=== PATIENT | male | born 1950 | race African-American/Black ===

== ENCOUNTER → 2018-07-20 08:12 | Outpatient (CLI) | payer OTHER, SELFPAY ==
[2018-07-20 09:20] LABS: ALB/GLOB Ratio 0.7 RATIO (0.9-2.4); AST(SGOT) 22 U/L (15-37); Alanine Aminotransfer ALT/SGPT 29 U/L (16-61); Albumin, Serum 3.4 g/dL (3.2-5.0); Alkaline Phosphatase 67 U/L (45-117); Anion Gap 7 (5-15); BUN 12 mg/dL (7-18); BUN/Creat Ratio 10.7 RATIO (10-20); Chloride 103 mmol/L (98-107); Cholesterol 171 mg/dL (200); Creatinine, Serum 1.12 mg/dL (0.70-1.30); EST Glomerular Filtration Rate 70 mL/min (>60); Est Glom Filt Rate - Afr Amer 84 mL/min (>60); Globulin 4.8 g/dL (2.2-4.2); Glucose 91 mg/dL (74-106); High Density Lipoprotein 42 mg/dL; Potassium 4.7 mmol/L (3.5-5.1); Protein, Total 8.2 g/dL (6.4-8.2); Sodium Level 141 mmol/L (136-145); Triglycerides 78 mg/dL; Very Low Density Lipoprotein 16 mg/dL (5-40)
== END ==
PROVIDERS: Family Provider Family Medicine; PCP Family Medicine; Referring Provider Family Medicine; Visit Provider Family Medicine
DX: Z00.00 Encounter for general adult medical examination without abnormal findings (principal); N52.9 Male erectile dysfunction, unspecified
CPT/HCPCS: 36415; 80053; 80061

== ENCOUNTER → 2019-01-26 | Outpatient (CLI) | payer OTHER, SELFPAY ==
[2019-01-26 10:05] VITALS: BMI 26.6
[2019-01-26 13:04] LABS: Cholesterol 183 mg/dL (200); High Density Lipoprotein 46 mg/dL; Triglycerides 106 mg/dL; Very Low Density Lipoprotein 21 mg/dL (5-40)
== END | disposition home or self-care (01) ==
LOC: BIMLAB 10:37
PROVIDERS: Family Provider Family Medicine; PCP Family Medicine; Visit Provider Family Medicine
DX: E78.5 Hyperlipidemia, unspecified (principal)
CPT/HCPCS: 36415; 80061

== ENCOUNTER → 2019-06-15 15:07 | Outpatient (CLI) | payer OTHER, SELFPAY ==
[2019-06-15 14:03] VITALS: BMI 26.2
[2019-06-15 17:38] LABS: ALB/GLOB Ratio 0.8 RATIO (0.9-2.4); AST(SGOT) 21 U/L (15-37); Alanine Aminotransfer ALT/SGPT 33 U/L (16-61); Albumin, Serum 3.3 g/dL (3.2-5.0); Alkaline Phosphatase 63 U/L (45-117); Anion Gap 7 (5-15); BUN 11 mg/dL (7-18); BUN/Creat Ratio 9.9 RATIO (10-20); Calcium,Total 8.8 mg/dL (8.5-10.1); Chloride 103 mmol/L (98-107); Cholesterol 144 mg/dL (200); Creatinine, Serum 1.11 mg/dL (0.70-1.30); EST Glomerular Filtration Rate 70 mL/min (>60); Est Glom Filt Rate - Afr Amer 85 mL/min (>60); Globulin 4.4 g/dL (2.2-4.2); Glucose 76 mg/dL (74-106); High Density Lipoprotein 46 mg/dL; PSA,Total - Annual Screen 4.61 ng/mL (0.00-4.00); Potassium 4.3 mmol/L (3.5-5.1); Protein, Total 7.7 g/dL (6.4-8.2); Sodium Level 141 mmol/L (136-145); Triglycerides 75 mg/dL; Very Low Density Lipoprotein 15 mg/dL (5-40)
== END ==
PROVIDERS: Family Provider Family Medicine; PCP Family Medicine; Referring Provider Family Medicine; Visit Provider Family Medicine
DX: E78.5 Hyperlipidemia, unspecified (principal); N52.9 Male erectile dysfunction, unspecified; Z12.5 Encounter for screening for malignant neoplasm of prostate
CPT/HCPCS: 36415; 80053; 80061; 84153; G0103

== ENCOUNTER → 2020-04-25 15:34 | Outpatient (CLI) | payer OTHER, SELFPAY ==
[2020-02-02 08:28] VITALS: BMI 26.4
[2020-04-29 08:50] LABS: Trileptal-Oxcarbazepine 23 ug/mL (10-35)
== END ==
PROVIDERS: PCP Family Medicine; Referring Provider Family Medicine; Visit Provider Family Medicine
DX: R56.9 Unspecified convulsions (principal)
CPT/HCPCS: 36415; 82542

== ENCOUNTER → 2020-06-05 07:42 | Outpatient (CLI) | payer OTHER, SELFPAY ==
[2020-05-18 08:11] VITALS: BMI 26.9
[2020-06-05 08:46] LABS: Hematocrit 39.6 % (40-54); Hemoglobin 12.4 g/dL (13.0-16.5); Mean Corp Hgb Conc 31.3 g/dL (32-36); Mean Corpuscular Hgb 27.4 pg (27.0-32.0); Mean Corpuscular Volume 87.4 fL (80-94); Mean Platelet Vol. 10.8 fl (6.2-12.0); Platelet Count 213 K/mm3 (150-450); RBC Distribution Width CV 13.7 % (11.6-14.6); RBC Distribution Width SD 43.8 fl (35.1-43.9); Red Blood Count 4.53 M/mm3 (4.6-6.2); White Blood Count 4.1 K/mm3 (4.4-11.0)
[2020-06-05 08:48] LABS: Vitamin B12 471 pg/mL (211-911)
[2020-06-05 09:11] LABS: ALB/GLOB Ratio 0.7 RATIO (0.9-2.4); AST(SGOT) 24 U/L (15-37); Alanine Aminotransfer ALT/SGPT 37 U/L (16-61); Albumin, Serum 3.4 g/dL (3.2-5.0); Alkaline Phosphatase 69 U/L (45-117); Anion Gap 4 (5-15); BUN 12 mg/dL (7-18); BUN/Creat Ratio 10.3 RATIO (10-20); Calcium,Total 8.9 mg/dL (8.5-10.1); Chloride 103 mmol/L (98-107); Creatinine, Serum 1.17 mg/dL (0.70-1.30); EST Glomerular Filtration Rate 66 mL/min (>60); Est Glom Filt Rate - Afr Amer 80 mL/min (>60); Globulin 4.9 g/dL (2.2-4.2); Glucose 90 mg/dL (74-106); Potassium 4.4 mmol/L (3.5-5.1); Protein, Total 8.3 g/dL (6.4-8.2); Sodium Level 138 mmol/L (136-145); Thyroid Stim Hormone (TSH) 1.28 uIU/mL (0.358-3.74)
== END ==
PROVIDERS: Nurse Practitioner Family; PCP Family Medicine; Referring Provider Psychiatry & Neurology Neurology; Visit Provider Psychiatry & Neurology Neurology
DX: G31.84 Mild cognitive impairment of uncertain or unknown etiology (principal); G40.909 Epilepsy, unspecified, not intractable, without status epilepticus
CPT/HCPCS: 36415; 80053; 82607; 82746; 84443; 85027

== ENCOUNTER → 2020-06-28 09:12 | Outpatient (CLI) | payer OTHER, SELFPAY ==
[2020-06-28 08:15] VITALS: BMI 26.6
== END ==
PROVIDERS: PCP Family Medicine; Referring Provider Internal Medicine; Visit Provider Internal Medicine
DX: Z00.00 Encounter for general adult medical examination without abnormal findings (principal); D64.9 Anemia, unspecified; G40.909 Epilepsy, unspecified, not intractable, without status epilepticus
CPT/HCPCS: 36415

== ENCOUNTER → 2020-07-17 09:22 | Outpatient (CLI) | payer OTHER, SELFPAY ==
[2020-05-18 08:11] VITALS: BMI 26.9
[2020-06-28 08:15] VITALS: BMI 26.6
--- NOTE | 2020-07-17 09:23 | MRI_ITS ---
STUDY: MRA OF THE HEAD WITHOUT CONTRAST REASON FOR EXAM: Male, 69 years old. family hx cerebral aneurysm, hx of seizure 01/03/20 TECHNIQUE: 3-D athn-[id number] (TOF) imaging was performed with MIPs. The study was performed unenhanced. COMPARISON: None. FINDINGS: Normal bilateral petrous carotid arteries. Normal right cavernous carotid artery with a normal supraclinoid bifurcation. Normal left cavernous carotid artery with a normal supraclinoid bifurcation. Normal right A1 segments of the anterior cerebral artery. Normal left A1 segments of the anterior cerebral artery. Normal intact anterior communicating artery (ACOM). Normal bilateral A2 segments of the anterior cerebral arteries. Normal right M1 and M2 segments of the middle cerebral arteries, with a normal M1 bifurcation. Normal left M1 and M2 segments of the middle cerebral arteries, with a normal M1 bifurcation. Normal right posterior communicating artery (PCOM). Normal left posterior communicating artery (PCOM). Normal bilateral vertebral arteries. Normal basilar artery with a normal basilar bifurcation. The visualized bilateral superior cerebellar (SCA) arteries are normal. Normal bilateral P1, P2 and visualized P3 segments of the posterior cerebral arteries. There is no demonstrated aneurysm of the [place]. There is no major vessel occlusion or hemodynamically significant stenosis. MRI/MRA Head ONLY without Contrast IMPRESSION: Normal MRA of the head Electronically Signed: Jose Luis Flores MD at 18:12 EDT Tel , Service support ,
== END ==
PROVIDERS: PCP Family Medicine; Referring Provider Psychiatry & Neurology Neurology; Visit Provider Psychiatry & Neurology Neurology
DX: Z13.6 Encounter for screening for cardiovascular disorders (principal); Z82.49 Family history of ischemic heart disease and other diseases of the circulatory system
CPT/HCPCS: 70544

== ENCOUNTER → 2020-08-21 06:20 | Outpatient (CLI) | payer OTHER, SELFPAY ==
[2020-05-18 08:11] VITALS: BMI 26.9
[2020-06-28 08:15] VITALS: BMI 26.6
--- NOTE | 2020-08-21 07:41 | TELEMED_ITS ---
[facility] Telemed has confirmed receipt of a request for visit. This document confirms receipt of the order initiating the consult. To find the results of the consultation, please view the patient's reports for the scanned Telemed Consult.
== END ==
PROVIDERS: PCP Family Medicine; Referring Provider Psychiatry & Neurology Neurology; Visit Provider Psychiatry & Neurology Neurology
DX: G40.909 Epilepsy, unspecified, not intractable, without status epilepticus (principal)
CPT/HCPCS: 95819

== ENCOUNTER → 2020-08-21 18:06 | Outpatient (CLI) | payer OTHER, SELFPAY ==
[2020-08-21 08:23] VITALS: BMI 26.6
== END ==
PROVIDERS: PCP Family Medicine; Referring Provider Internal Medicine; Visit Provider Internal Medicine
DX: U07.1 COVID-19 (principal)
CPT/HCPCS: 87635; C9803; U0003

== ENCOUNTER → 2020-11-01 08:27 | Outpatient (CLI) | payer OTHER, SELFPAY ==
[2020-09-07 08:29] VITALS: BMI 26.5
[2020-11-01 10:06] LABS: Hematocrit 39.5 % (40-54); Hemoglobin 12.2 g/dL (13.0-16.5); Mean Corp Hgb Conc 30.9 g/dL (32-36); Mean Corpuscular Hgb 26.9 pg (27.0-32.0); Mean Corpuscular Volume 87.2 fL (80-94); Mean Platelet Vol. 11.1 fl (6.2-12.0); Platelet Count 218 K/mm3 (150-450); RBC Distribution Width CV 14.2 % (11.6-14.6); RBC Distribution Width SD 45.6 fl (35.1-43.9); Red Blood Count 4.53 M/mm3 (4.6-6.2); White Blood Count 4.8 K/mm3 (4.4-11.0)
[2020-11-01 10:49] LABS: ALB/GLOB Ratio 0.8 RATIO (0.9-2.4); AST(SGOT) 19 U/L (15-37); Alanine Aminotransfer ALT/SGPT 36 U/L (16-61); Albumin, Serum 3.7 g/dL (3.2-5.0); Alkaline Phosphatase 70 U/L (45-117); Anion Gap 3 (5-15); BUN 12 mg/dL (7-18); BUN/Creat Ratio 10.4 RATIO (10-20); Calcium,Total 9.5 mg/dL (8.5-10.1); Chloride 107 mmol/L (98-107); Creatinine, Serum 1.15 mg/dL (0.70-1.30); EST Glomerular Filtration Rate 67 mL/min (>60); Est Glom Filt Rate - Afr Amer 81 mL/min (>60); Globulin 4.9 g/dL (2.2-4.2); Glucose 80 mg/dL (74-106); Potassium 4.2 mmol/L (3.5-5.1); Protein, Total 8.6 g/dL (6.4-8.2); Sodium Level 139 mmol/L (136-145)
[2020-11-05 16:50] LABS: Trileptal-Oxcarbazepine 18 ug/mL (10-35)
== END ==
PROVIDERS: PCP Family Medicine; Referring Provider Psychiatry & Neurology Neurology; Visit Provider Psychiatry & Neurology Neurology
DX: G40.909 Epilepsy, unspecified, not intractable, without status epilepticus (principal)
CPT/HCPCS: 36415; 80053; 82542; 85027

== ENCOUNTER 2020-11-30 14:18 | Outpatient (RCR) | payer OTHER, SELFPAY ==
[2020-09-07 08:29] VITALS: BMI 26.5
[2020-11-30] MEDS: COVID-19 VACC, MRNA(PFIZER)/PF 30 MCG/0.3 ML SYRINGE IM (18:07)
[2020-12-21] MEDS: COVID-19 VACC, MRNA(PFIZER)/PF 30 MCG/0.3 ML SYRINGE IM (18:05)
== END 2021-02-27 23:59 ==
LOC: IMMUN 14:18
PROVIDERS: PCP Family Medicine; Referring Provider Family Medicine; Visit Provider Family Medicine
DX: Z23 Encounter for immunization (principal)
CPT/HCPCS: 0001A; 0002A; 91300

== ENCOUNTER → 2021-06-09 08:31 | Outpatient (CLI) | payer OTHER, SELFPAY ==
[2021-06-12 18:25] LABS: Lamotrigine (Lamictal) Level 2.7 ug/mL (2.0-20.0)
== END ==
PROVIDERS: PCP Family Medicine; Referring Provider Psychiatry & Neurology Neurology; Visit Provider Psychiatry & Neurology Neurology
DX: G40.909 Epilepsy, unspecified, not intractable, without status epilepticus (principal)
CPT/HCPCS: 36415; 82140; 82542

== ENCOUNTER → 2021-08-01 11:49 | Outpatient (CLI) | payer OTHER, SELFPAY | PROVIDERS: PCP Family Medicine; Referring Provider Internal Medicine; Visit Provider Internal Medicine | DX: Z00.00 Encounter for general adult medical examination without abnormal findings (principal) | CPT/HCPCS: 36415 ==

== ENCOUNTER → 2021-09-06 09:00 | Outpatient (CLI) | payer OTHER, SELFPAY ==
[2021-09-10 20:11] LABS: Lamotrigine (Lamictal) Level 2.2 ug/mL (2.0-20.0)
== END ==
PROVIDERS: PCP Family Medicine; Visit Provider Family Medicine
DX: G40.909 Epilepsy, unspecified, not intractable, without status epilepticus (principal)
CPT/HCPCS: 36415; 82542

== ENCOUNTER 2021-12-10 07:34 | Outpatient (CLI) | payer OTHER, SELFPAY ==
[2021-12-10 08:35] LABS: Ammonia < 10.0 umol/L (11-32)
[2021-12-12 17:13] LABS: Lamotrigine (Lamictal) Level 3.5 ug/mL (2.0-20.0)
== END 2021-12-10 23:59 | disposition home or self-care (01) ==
LOC: LAB 07:35
PROVIDERS: PCP Family Medicine; Referring Provider Nurse Practitioner Family; Visit Provider Nurse Practitioner Family
DX: G40.909 Epilepsy, unspecified, not intractable, without status epilepticus (principal)
CPT/HCPCS: 36415; 82140; 82542

== ENCOUNTER → 2022-05-07 | Outpatient (CLI) | payer OTHER, SELFPAY ==
[2022-05-07 10:29] LABS: ALB/GLOB Ratio 0.7 RATIO (0.9-2.4); AST(SGOT) 18 U/L (15-37); Alanine Aminotransfer ALT/SGPT 24 U/L (16-61); Albumin, Serum 3.5 g/dL (3.2-5.0); Alkaline Phosphatase 62 U/L (45-117); Anion Gap 1 (5-15); BUN 13 mg/dL (7-18); Calcium,Total 9.4 mg/dL (8.5-10.1); Chloride 105 mmol/L (98-107); Creatinine, Serum 1.18 mg/dL (0.70-1.30); EST Glomerular Filtration Rate 65 mL/min (>60); Est Glom Filt Rate - Afr Amer 79 mL/min (>60); Globulin 4.8 g/dL (2.2-4.2); Glucose 88 mg/dL (74-106); Magnesium 2.2 mg/dL (1.6-2.6); Potassium 4.2 mmol/L (3.5-5.1); Protein, Total 8.3 g/dL (6.4-8.2); Sodium Level 139 mmol/L (136-145)
[2022-05-10 11:40] LABS: Lamotrigine (Lamictal) Level 2.8 ug/mL (2.0-20.0)
== END | disposition home or self-care (01) ==
LOC: LAB 08:48
PROVIDERS: PCP Internal Medicine; Referring Provider Nurse Practitioner Family; Visit Provider Nurse Practitioner Family
DX: G40.909 Epilepsy, unspecified, not intractable, without status epilepticus (principal)
CPT/HCPCS: 36415; 80053; 82140; 82542; 83735

== ENCOUNTER → 2022-06-26 | Outpatient (CLI) | payer OTHER, SELFPAY | END | disposition home or self-care (01) | LOC: BIMLAB 10:29 | PROVIDERS: PCP Internal Medicine; Referring Provider Internal Medicine; Visit Provider Internal Medicine | DX: Z00.00 Encounter for general adult medical examination without abnormal findings (principal) | CPT/HCPCS: 36415 ==

== ENCOUNTER → 2022-10-07 | Outpatient (CLI) | payer OTHER, SELFPAY ==
[2022-10-07 09:59] LABS: Hematocrit 39.8 % (40-54); Hemoglobin 12.4 g/dL (13.0-16.5); Mean Corp Hgb Conc 31.2 g/dL (32-36); Mean Corpuscular Hgb 27.4 pg (27.0-32.0); Mean Corpuscular Volume 87.9 fL (80-94); Mean Platelet Vol. 10.6 fl (6.2-12.0); Platelet Count 212 K/mm3 (150-450); RBC Distribution Width CV 14.3 % (11.6-14.6); RBC Distribution Width SD 46.1 fl (35.1-43.9); Red Blood Count 4.53 M/mm3 (4.6-6.2); White Blood Count 4.8 K/mm3 (4.4-11.0)
[2022-10-07 10:17] LABS: Ammonia < 10.0 umol/L (11-32)
[2022-10-07 10:25] LABS: Vitamin B12 618 pg/mL (211-911)
[2022-10-07 10:42] LABS: ALB/GLOB Ratio 0.7 RATIO (0.9-2.4); AST(SGOT) 13 U/L (15-37); Alanine Aminotransfer ALT/SGPT 27 U/L (16-61); Albumin, Serum 3.4 g/dL (3.2-5.0); Alkaline Phosphatase 59 U/L (45-117); Anion Gap 4 (5-15); BUN 13 mg/dL (7-18); BUN/Creat Ratio 11.2 RATIO (10-20); Calcium,Total 9.2 mg/dL (8.5-10.1); Chloride 104 mmol/L (98-107); Cholesterol 153 mg/dL (200); Creatinine, Serum 1.16 mg/dL (0.70-1.30); EST Glomerular Filtration Rate 66 mL/min (>60); Est Glom Filt Rate - Afr Amer 80 mL/min (>60); Globulin 4.8 g/dL (2.2-4.2); Glucose 87 mg/dL (74-106); High Density Lipoprotein 49 mg/dL; Potassium 4.6 mmol/L (3.5-5.1); Protein, Total 8.2 g/dL (6.4-8.2); Sodium Level 139 mmol/L (136-145); Thyroid Stim Hormone (TSH) 0.94 uIU/mL (0.358-3.74); Triglycerides 64 mg/dL; Very Low Density Lipoprotein 13 mg/dL (5-40)
[2022-10-09 22:20] LABS: Lamotrigine (Lamictal) Level 2.5 ug/mL (2.0-20.0)
== END | disposition home or self-care (01) ==
LOC: MTLAB 09:09
PROVIDERS: PCP Internal Medicine; Referring Provider Psychiatry & Neurology Neurology; Visit Provider Psychiatry & Neurology Neurology
DX: G40.909 Epilepsy, unspecified, not intractable, without status epilepticus (principal); G47.10 Hypersomnia, unspecified; G31.84 Mild cognitive impairment of uncertain or unknown etiology
CPT/HCPCS: 36415; 80053; 80061; 82140; 82542; 82607; 82746; 84425; 84443; 85027

== ENCOUNTER → 2023-06-30 | Outpatient (CLI) | payer OTHER, SELFPAY ==
[2023-06-30 16:47] LABS: Absolute Lymphocyte Count 1.71 X10^3/uL (0.83-4.51); Absolute Neutrophil Count 2.7 X10^3/uL (2.0-7.7); Basophil# 0.02 X10^3/uL; Basophil% 0.4 % (0-1); Eosinophil# 0.03 X10^3/uL; Eosinophils% 0.6 % (0-5); Hematocrit 39.8 % (40-54); Hemoglobin 12.1 g/dL (13.0-16.5); Lymphocyte # 1.71 X10^3/ul (0.83-4.51); Mean Corp Hgb Conc 30.4 g/dL (32-36); Mean Corpuscular Hgb 26.4 pg (27.0-32.0); Mean Corpuscular Volume 86.9 fL (80-94); Mean Platelet Vol. 11.3 fl (6.2-12.0); Monocyte# 0.27 X10^3/uL; Monocyte% 5.7 % (0-10); NRBC Flagged by Analyzer 0 % (0-5); Neutrophil % 56.9 % (47-70); Platelet Count 239 K/mm3 (150-450); RBC Distribution Width CV 14.6 % (11.6-14.6); RBC Distribution Width SD 46.8 fl (35.1-43.9); Red Blood Count 4.58 M/mm3 (4.6-6.2); White Blood Count 4.8 K/mm3 (4.4-11.0)
[2023-06-30 17:00] LABS: Ferritin 56 ng/mL (26-388); Iron 55 ug/dL (65-175)
[2023-06-30 17:01] LABS: ALB/GLOB Ratio 0.7 RATIO (0.9-2.4); AST(SGOT) 22 U/L (15-37); Alanine Aminotransfer ALT/SGPT 34 U/L (16-61); Albumin, Serum 3.6 g/dL (3.2-5.0); Alkaline Phosphatase 71 U/L (45-117); Anion Gap 6 (5-15); BUN 11 mg/dL (7-18); BUN/Creat Ratio 9.8 RATIO (10-20); Calcium,Total 9.4 mg/dL (8.5-10.1); Chloride 105 mmol/L (98-107); Cholesterol 169 mg/dL (200); Creatinine, Serum 1.12 mg/dL (0.70-1.30); EST Glomerular Filtration Rate 69 mL/min (>60); Est Glom Filt Rate - Afr Amer 83 mL/min (>60); Globulin 4.9 g/dL (2.2-4.2); Glucose 87 mg/dL (74-106); High Density Lipoprotein 53 mg/dL; Potassium 4.2 mmol/L (3.5-5.1); Protein, Total 8.5 g/dL (6.4-8.2); Sodium Level 141 mmol/L (136-145); Triglycerides 67 mg/dL; Very Low Density Lipoprotein 13 mg/dL (5-40)
[2023-06-30 17:19] LABS: Ammonia < 10.0 umol/L (11-32)
[2023-07-03 14:09] LABS: Lamotrigine (Lamictal) Level 3.1 ug/mL (2.0-20.0)
== END | disposition home or self-care (01) ==
LOC: BIMLAB 15:18
PROVIDERS: Psychiatry & Neurology Neurology; PCP Internal Medicine; Referring Provider Internal Medicine; Visit Provider Internal Medicine
DX: Z00.00 Encounter for general adult medical examination without abnormal findings (principal); G40.909 Epilepsy, unspecified, not intractable, without status epilepticus; Z86.2 Personal history of diseases of the blood and blood-forming organs and certain disorders involving the immune mechanism
CPT/HCPCS: 36415; 80053; 80061; 82140; 82542; 82728; 83540; 84153; 85025; G0103

== ENCOUNTER 2023-07-31 07:48 | Day surgery (SDC) | payer OTHER, SELFPAY ==
[2023-07-31] VITALS (7 sets, daily range): BP systolic 108–126; BP diastolic 68–77; PULSE 51–59; RESP 16–18; TEMP 36.1–36.3; O2SAT 98–100; BMI 24.6
[2023-07-31] MEDS: Lactated Ringers 1,000 ML 15 ML IV (08:26)
--- NOTE | 2023-07-31 09:00 | COLBX_PTH ---
PATIENT: SHERLEY MILLIGAN LOC: EN U#:[id number] AGE/SX: 72/M ROOM: RE07/31/[address]: Dr. Patric Khalil MD : 1950 BED: DIS: 07/31/2023 SPEC #: [id number] RECD: 07/31/23 11:14 STATUS: CLIFF DOMINIC #: [id number] MONICA: 07/31/23 09:[address]: Patric Khalil DEPT: SURGICAL PATHOLOGY RECD BY: Socorro Pineda ENTERED: 07/31/23 12:15 SP TYPE: COLON BX OTHR DR: Dr. Bev Echevarria MD Tissues: A - Descending colon B - Transverse colon C - Transverse colon D - Sigmoid colon biopsy Procedures: Surgery Specimen Level IV HEADER OPERATION: Colonoscopy - open access polypectomy, biopsy PRE-OP DIAGNOSIS: Screening TISSUE SUBMITTED: A. Descending polyp, B. Distal transverse, C. Transverse colon polyp, D. Sigmoid colon polyp MICROSCOPIC DIAGNOSIS A. Descending polyp, polypectomy: Fragments of tubular adenoma. B. Distal transverse, polypectomy: Tubular adenoma. C. Transverse colon polyp, polypectomy: Tubular adenoma. D. Sigmoid colon polyp, biopsy: Tubular adenoma. SJ: 08/01/2023 MICROSCOPIC DESCRIPTION Slides are reviewed. GROSS DESCRIPTION A. Received is one container labeled with the patient name and designated descending polyp. The specimen consists of multiple irregular fragments of light giordano soft tissue that in aggregate measure 2 x 0.8 x 0.2 cm. The specimen is totally submitted in one cassette. B. Received is one container labeled with the patient name and designated distal transverse polyp. The specimen consists of one giordano-pink polyp that measures 1.5 x 0.6 x 0.5 cm. The specimen is bisected and totally submitted in one cassette. C. Received is one container labeled with the patient name and designated transverse colon polyp. The specimen consists of multiple irregular fragments of light giordano soft tissue that in aggregate measure 0.5 x 0.2 x 0.1 cm. The specimen is totally submitted in one cassette. D. Received is one container labeled with the patient name and designated sigmoid colon polyp. The specimen consists of multiple irregular fragments of light giordano soft tissue that in aggregate measure 1 x 0.3 x 0.1 cm. The specimen is totally submitted in one cassette. / SJ:cc:mingo 07/31/23 TC: 1 CPT: 55014 x4
--- NOTE | 2023-07-31 09:09 | H&P.OPEN ---
[facility] - General General Date of Service: 07/31/23 Chief Complaint: Screening colonoscopy HPI Narrative SHERLEY MILLIGAN, is a 72 M who presents for screening colonoscopy. He confirms her preappointment questionnaire that she has not experienced any change in his bowel habits-and particularly denies any notice of blood. He confirms a family history of colon cancer in his father which was diagnosed when his father was in his early 70s. He notes that his father succumbed to this diagnosis due to advanced age at the time of identification. There is a history of anemia as well, but Mr. Milligan reports that this is now well managed with the use of supplemental iron. He believes his last colonoscopy, performed 10-15 years ago, was performed subsequent to this diagnosis. He also shares that to the best of his recall there were no significant findings at that investigation. Lastly he confirms that his prep was completed successfully and that his output is now clear. [facility] Medical History (Updated 07/28/23 @ 09:48 by Shauna Long) Anemia Colon cancer screening Elevated PSA Erectile dysfunction Family hx of colon cancer Fatigue Former smoker Headache Hearing problem High cholesterol History of Holter monitoring History of seizure Hyperlipemia Hypertension Preventative health care Wears glasses Home Medications atorvastatin 10 mg tablet 10 mg PO QHS #90 tabs 12/11/22 [Rx Last Taken Unknown] lamotrigine 100 mg tablet 100 mg PO BID #180 tabs 04/07/23 [Rx Last Taken 07/31/23 05:00] tadalafil 20 mg tablet 20 mg PO DAILY PRN sexual activity #30 tabs 04/17/23 [Rx Last Taken Unknown] amlodipine 10 mg tablet 10 mg PO DAILY #90 tabs 06/09/23 [Rx Last Taken 07/31/23 06:00] ferrous sulfate 325 mg (65 mg iron) tablet 325 mg PO Q OTHER DAY #90 tabs 07/24/23 [Rx Last Taken Unknown] elderberry fruit 200 mg capsule 200 mg PO DAILY 07/28/23 [History Last Taken Unknown] Allergy/AdvReac Type Severity Reaction Status Date / Time No Known Allergies Allergy Verified 07/31/23 08:15 Family History (Updated 07/03/23 @ 10:39 by Marycruz Brown) Father Brain aneurysm Intestinal cancer Sister Alcoholism Throat cancer Brother Seizures Happened after a GSW to the head. Surgical History (Updated 07/03/23 @ 10:38 by Marycruz Brown) Hx of colonoscopy Social History Smoking Status: Former smoker how long ago did patient quit smokin second hand exposure: No alcohol intake: never substance use type: does not use what type of physical activity do you participate in: walking and weight training frequency: 3-4 times per week ambar/jewish: Other seatbelt use: always Past Medical/Surgical History Planned Operation Planned Operative Procedure/s: COLONOSCOPY-OA Previous Hospitalizations/Surgeries HX Hospitalizations: No Any Problems With Anesthesia: No You/Your Family Experience Fever (Hyperthermia) With Anes: No Cholinesterase deficiency: No Cardiovascular Hx Hypertension: Yes (CONTROLLED ON MED) Respiratory Hx Sleep Apnea: No Hx Respiratory Tract Infection/Cold (presently): No Do You Snore Loudly (louder than talking or can be heard): No Do You Often Feel Tired/ Fatigued/ Sleepy Dring Daytime?: No Has Anyone Observed You Stop Breathing During Sleep?: No Result (for STOP score): Negative Smoking Status: Former smoker Neurological Does patient have nerve stimulator: No Miscellaneous Recent Exposure to Contagious Disease: No Allergies No Known Allergies Allergy (Verified 07/31/23 08:15) Discharge Is Pt Admitted From a Fdc, or a Senior Living: No After D/C, Where Do you Plan to Go: Return Home Vital Signs Vital Signs Vital Signs: 07/31/23 08:14 07/31/23 08:17 Temperature 97.3 F L Temperature Source Temporal Pulse Rate 59 L Respiratory Rate 18 Respiratory Pattern Normal Blood Pressure 126/71 H Blood Pressure Mean 89 Blood Pressure Source Monitor Blood Pressure Position Semi-Fowlers Blood Pressure Location Left Arm Pulse Ox 100 Oxygen Delivery Method Room Air Weight Weight: 176 lb 12.8 oz Body Mass Index (BMI) 24.6 Physical Exam Const alert, oriented x3 and no apparent distress General Appearance: cooperative Resp normal respiratory effort GI GI Narrative: Nondistended, soft, nontender to palpation x4 quadrants Assessment & Plan Assessment/Plan (1) Colon cancer screening: PLAN: Patient is a 72-year-old male, with a past history of colonoscopic evaluation some 10 to 15 years ago. Per his recall there were no significant findings. He reports today to update his screening for colon cancer. There is a family history of colon cancer diagnosed in patient's father, however this came in his eighth decade of life and would therefore be unlikely to confer a significant genetic risk. Patient, for his part, denies any present concerns with his GI tract. He also confirms having completed bowel prep. Therefore we will proceed with endoscopy as planned. Surgery Risks - Colonoscopy Risks Include but are not Limited To: Risks include but are not limited to: Bleeding, perforation requiring further surgery, inability to complete colonoscopy requiring barium enema.
--- NOTE | 2023-07-31 10:05 | OP.COLON_ITS ---
Patient Name: Moo Butler Procedure Date: 07/31/2023 8:57 AM Date of : 1950 Age: 72 Procedure: Colonoscopy Indications: Screening for colorectal malignant neoplasm, Screening patient at increased risk: Family history of 1st-degree relative with colorectal cancer at age 60 years (or older) Providers: Patric Khalil MD Medicines: See the Anesthesia note for documentation of the administered medications Patient Profile: Refer to note in patient chart for documentation of history and physical. Last Colonoscopy: more than 10 years ago. Complications: No immediate complications. Estimated blood loss: Minimal. Procedure: Pre-Anesthesia Assessment: - The heart rate, respiratory rate, oxygen saturations, blood pressure, adequacy of pulmonary ventilation, and response to care were monitored throughout the procedure. After I obtained informed consent, the scope was passed under direct vision. Throughout the procedure, the patient's blood pressure, pulse, and oxygen saturations were monitored continuously. The Colonoscope was introduced through the anus and advanced to the cecum, identified by the appendiceal orifice, ileocecal valve and palpation. The colonoscopy was performed without difficulty. The quality of the bowel preparation was good. Scope In: 9:17:46 AM Scope Withdrawal Time 0 hours 16 minutes 39 seconds Scope Out: 9:52:59 AM Total Procedure Duration Time 0 hours 35 minutes 13 seconds Findings: Skin tags were found on perianal exam. A 10 mm polyp was found in the descending colon transverse colon. The polyp was pedunculated. The polyp was removed with a hot snare. Resection and retrieval were complete. Estimated blood loss: none. Two semi-sessile polyps were found in the sigmoid colon and transverse colon. The polyps were 5 mm in size. Biopsies were taken with a cold forceps for histology. Estimated blood loss was minimal. Internal hemorrhoids were found during retroflexion. The hemorrhoids were Grade I (internal hemorrhoids that do not prolapse). No biopsies or other specimens were collected for this exam. Impression: - Perianal skin tags found on perianal exam. - One 10 mm polyp in the descending colon in the transverse colon, removed with a hot snare. Resected and retrieved. - Two 5 mm polyps in the sigmoid colon and in the transverse colon. Biopsied. - Internal hemorrhoids. No specimens collected. Recommendation: - Discharge patient to home (via wheelchair). - Resume previous diet today. - Continue present medications. - Await pathology results. - Repeat colonoscopy date to be determined after pending pathology results are reviewed for surveillance based on pathology results. - Telephone my office for pathology results in 1 week. Procedure Code(s): --- Professional --- 08633, Colonoscopy, flexible; with removal of tumor(s), polyp(s), or other lesion(s) by snare technique 92061, 59, Colonoscopy, flexible; with biopsy, single or multiple Diagnosis Code(s): --- Professional --- Z80.0, Family history of malignant neoplasm of digestive organs Z12.11, Encounter for screening for malignant neoplasm of colon D12.4, Benign neoplasm of descending colon D12.3, Benign neoplasm of transverse colon (hepatic flexure or splenic flexure) D12.5, Benign neoplasm of sigmoid colon K64.0, First degree hemorrhoids K64.4, Residual hemorrhoidal skin tags CPT copyright 2021 [employer]. All rights reserved. The codes documented in this report are preliminary and upon csr retail review may be revised to meet current compliance requirements. Patric Khalil MD 07/31/2023 10:05:16 AM This report has been signed electronically. Number of Addenda: 0 Note Initiated On: 07/31/2023 8:57 AM
--- NOTE | 2023-07-31 10:06 | OP.CCLET_ITS ---
07/31/2023 Bev Echevarria MD [address] [place] [address] [place] [address] Re : Colonoscopy procedure for Moodemi Butler Dear Dr. Echevarria This procedure was performed on July. My impressions and recommendations are as follows: Impressions : - Perianal skin tags found on perianal exam. - One 10 mm polyp in the descending colon in the transverse colon, removed with a hot snare. Resected and retrieved. - Two 5 mm polyps in the sigmoid colon and in the transverse colon. Biopsied. - Internal hemorrhoids. No specimens collected. Recommendations : - Discharge patient to home (via wheelchair). - Resume previous diet today. - Continue present medications. - Await pathology results. - Repeat colonoscopy date to be determined after pending pathology results are reviewed for surveillance based on pathology results. - Telephone my office for pathology results in 1 week. My findings are described in the full procedure note, which is enclosed. If I can be of further assistance, please feel free to contact me at Doctor phone number(s): , Work: . Sincerely, Patric Khalil MD 07/31/2023 10:05:16 AM This report has been signed electronically.
== END 2023-07-31 10:51 | disposition home or self-care (01) ==
LOC: EN 07:48 → AC 07:50
PROVIDERS: PCP Internal Medicine; Referring Provider Internal Medicine; Visit Provider Surgery
PROC: 0DJD8ZZ Inspection of Lower Intestinal Tract, Via Natural or Artificial Opening Endoscopic (ICD-10-PCS; CPT 45378; principal; 2023-07-31 08:55)
DX: Z12.11 Encounter for screening for malignant neoplasm of colon (principal); K63.5 Polyp of colon; E78.00 Pure hypercholesterolemia, unspecified; K64.0 First degree hemorrhoids; Z80.0 Family history of malignant neoplasm of digestive organs; Z87.891 Personal history of nicotine dependence; D64.9 Anemia, unspecified; I10 Essential (primary) hypertension; Z79.899 Other long term (current) drug therapy; K64.4 Residual hemorrhoidal skin tags; D12.4 Benign neoplasm of descending colon; D12.3 Benign neoplasm of transverse colon; D12.5 Benign neoplasm of sigmoid colon
CPT/HCPCS: 45385; 45380; 88305; J7120; J2405

== ENCOUNTER → 2023-08-26 | Outpatient (CLI) | payer OTHER, SELFPAY ==
--- NOTE | 2023-08-26 | IMM_PTH ---
PATIENT: SHERLEY MILLIGAN LOC: [facility]DA U#:[id number] AGE/SX: 72/M ROOM: RE08/26/[address]: Dr. Ousmane Edmonds MD : 1950 BED: DIS: 08/26/2023 SPEC #: [id number] RECD: 08/28/23 13:33 STATUS: CLIFF REQ #: [id number] MONICA: 08/26/23 00:[address]: Ousmane Edmonds DEPT: IMMUNOHISTOCHEMISTRY RECD BY: Sheila Ashraf ENTERED: 08/28/23 13:35 SP TYPE: IMMUNO OTHR DR: Dr. Bev Echevarria MD Tissues: B - PROSTATE RIGHT A - PROSTATE RIGHT C - PROSTATE RIGHT D - PROSTATE LEFT F - PROSTATE LEFT Procedures: 34BE12 (add) P40 (add) 34BE12 (initial) PHYSICIAN & INSTITUTION [place] [address] SPECIMEN INFORMATION: Tissue Source: A - Right apex, B - Right mid, C - Right base, D - Left apex, F - Left base Clinical Info: Elevated PSA Specimen Number: [id number] A-D & F CPT code: 08795, 36931 x9 METHODOLOGY: Deparaffinized sections of prefer/formalin-fixed tissue or PAP/DQ stained slides are incubated with monoclonal/polyclonal antibodies/oligonucleotide probes. Localization is made via biotin free immunoperoxidase method. Appropriate controls are performed and reacted as expected. Results on target cell population are indicated in the following table: RESULTS: ANTIBODY / CLONE RESULT Block A P40 (BC28) positive 34BE12 (34BE12) positive Block B P40 (BC28) negative 34BE12 (34BE12) negative Block C P40 (BC28) negative 34BE12 (34BE12) negative Block D P40 (BC28) negative 34BE12 (34BE12) negative Block F P40 (BC28) positive 34BE12 (34BE12) positive These tests were developed and their performance characteristics determined by [facility]. They may not have been cleared or approved by the U.S. Food and Drug Administration. The FDA has determined that such clearance or approval is not necessary. The above immunohistochemical/dualISH markers are ordered and reviewed by the Pathologist. INTERPRETATION: A. Right prostate, apex, core biopsy: Negative for malignancy. B. Right prostate, mid, core biopsy: Adenocarcinoma. C. Right prostate, base, core biopsy: Adenocarcinoma. D. Left prostate, apex, core biopsy: Focal atypical small acinar proliferation (JAMARCUS). F. Left prostate, base, core biopsy: Focal high-grade prostatic intraepithelial neoplasia (HGPIN). SJ:brooks 08/29/2023
--- NOTE | 2023-08-26 08:00 | PROSBIL_PTH ---
PATIENT: SHERLEY MILLIGAN LOC: [facility]DA U#:[id number] AGE/SX: 72/M ROOM: RE08/26/[address]: Dr. Ousmane Edmonds MD : 1950 BED: DIS: 08/26/2023 SPEC #: [id number] RECD: 08/27/23 07:53 STATUS: CLIFF RECrispin #: [id number] MONICA: 08/26/23 08:[address]: Ousmane Edmonds DEPT: SURGICAL PATHOLOGY RECD BY: Keli Pearce ENTERED: 08/27/23 07:54 SP TYPE: PROST BX MINNIE DR: Dr. Bev Echevarria MD Tissues: A - PROSTATE RIGHT B - PROSTATE RIGHT C - PROSTATE RIGHT D - PROSTATE LEFT E - PROSTATE LEFT F - PROSTATE LEFT Procedures: PROSTATE BX HEADER OPERATION: Prostate biopsy PRE-OP DIAGNOSIS: Elevated PSA TISSUE SUBMITTED: A - Right apex, B - Right mid, C - Right base, D - Left apex, E - Left mid, F - Left base MICROSCOPIC DIAGNOSIS A. Right prostate, apex, core biopsy: Prostatic tissue, negative for malignancy. See comment. B. Right prostate, mid, core biopsy: Prostatic adenocarcinoma. Kendall grade: 3+3=6 Number of cores involved: 2/2 Proportion of tissue involved: 10% Perineural invasion: Not identified. Greatest tumor length: 0.8 cm, discontinuous. See comment. C. Right prostate, base, core biopsy: Prostatic adenocarcinoma. Kendall grade: 3+3=6 Number of cores involved: 1/2 Proportion of tissue involved: 5-10% Perineural invasion: Not identified. Greatest tumor length: 0.2 cm See comment. D. Left prostate, apex, core biopsy: Focal atypical small acinar proliferation (JAMARCUS). Focal mild chronic inflammation. See comment. E. Left prostate, mid, core biopsy: Prostatic tissue, negative for malignancy. Focal mild chronic inflammation. F. Left prostate, base, core biopsy: Focal high-grade prostatic intraepithelial neoplasia (HGPIN). See comment. SJ:brooks 08/28/2023 COMMENT A-D & F - Immunohistochemistry ([id number]) supports the above diagnosis. This case has been reviewed in consultation with Dr. Dsouza who concurs with the above diagnosis. MICROSCOPIC DESCRIPTION Slides are reviewed. GROSS DESCRIPTION A - Received is one container designated prostate, right apex. The specimen consists of two elongated fragments of light giordano-white soft tissue each measuring 1.5 cm in length and 0.1 cm in diameter. The specimen is totally submitted in one cassette. B - Received is one container designated prostate, right mid. The specimen consists of two elongated fragments of light giordano-white soft tissue measuring 1.3 and 1.5 cm in length and 0.1 cm in diameter. The specimen is totally submitted in one cassette. C - Received is one container designated prostate, right base. The specimen consists of two elongated fragments of light giordano-white soft tissue each measuring 1.5 cm in length and 0.1 cm in diameter. The specimen is totally submitted in one cassette. D - Received is one container designated prostate, left apex. The specimen consists of two elongated fragments of light giordano-white soft tissue measuring 1.1 and 1.6 cm in length and 0.1 cm in diameter. The specimen is totally submitted in one cassette. E - Received is one container designated prostate, left mid. The specimen consists of two elongated fragments of light giordano-white soft tissue measuring 1.2 and 1.5 cm in length and 0.1 cm in diameter. The specimen is totally submitted in one cassette. F - Received is one container designated prostate, left base. The specimen consists of two elongated fragments of light giordano-white soft tissue each measuring 1.5 cm in length and 0.1 cm in diameter. The specimen is totally submitted in one cassette. / SJ:rg 08/27/2023 TC:0 CPT: G0146
== END | disposition home or self-care (01) ==
LOC: LABSPEC 15:40
PROVIDERS: PCP Internal Medicine; Referring Provider Urology; Visit Provider Urology
DX: R97.20 Elevated prostate specific antigen [PSA] (principal)
CPT/HCPCS: 88305; 88341; 88342; G0416

== ENCOUNTER → 2023-09-16 | Outpatient (CLI) | payer OTHER, SELFPAY ==
--- NOTE | 2023-09-16 10:05 | NM_ITS ---
CLINICAL: 73-year-old male with history of primary prostate carcinoma. WHOLE BODY 99m Tc MDP RADIONUCLIDE BONE SCINTIGRAPHY COMPARISON: None available FINDINGS: Following the intravenous administration of 25.0 mCi of 99m Tc MDP, whole body bone images reveal: 1. Increased radiopharmaceutical concentration appears evident in the left mid clavicle and right posterior fourth rib. 2. Enhanced uptake is demonstrated in the acromioclavicular and sternoclavicular compartments of both shoulders, the right elbow, left wrist, the knees bilaterally, both ankles and left midfoot. 3. The remaining skeletal structures are scintigraphically unremarkable with normal-appearing renal images and urinary bladder activity identified. NM/Bone Scan Whole Body IMPRESSION: 1. The increase in tracer uptake noted in the left mid clavicle and right fourth rib posteriorly likely represent previous trauma fracture and may be further investigated with plain film radiography in the setting of known prostate carcinoma. 2. Degenerative arthritis appears apparent in the bilateral shoulders, right elbow, left wrist, both knee articulations, the bilateral ankles and left midfoot. Electronically Signed: Jae Carmona DO at 9:46 EST ,
== END | disposition home or self-care (01) ==
PROVIDERS: PCP Internal Medicine; Referring Provider Urology; Visit Provider Urology
DX: C61 Malignant neoplasm of prostate (principal); R97.20 Elevated prostate specific antigen [PSA]
CPT/HCPCS: 78306; A9503

== ENCOUNTER → 2023-09-19 | Outpatient (CLI) | payer OTHER, SELFPAY ==
--- NOTE | 2023-09-19 12:53 | CT_ITS ---
STUDY: CT Abdomen And Pelvis WO/W Contrast Injection 09/21/2023 4:15 PM REASON FOR EXAM: Male, 73 years old. Abdominal pain MALIGNANT NEOPLASM OF PROSTATE Individualized dose optimization techniques were used for this CT. COMPARISON: None. TECHNIQUE: CT Abdomen And Pelvis WO/W Contrast Injection IV 100mL Isovue-300 FINDINGS: The visualized lung bases are unremarkable. The visualized portions of the heart are within normal limits. Normal liver. Normal gallbladder and extrahepatic biliary system. Normal spleen. Normal pancreas. Normal bilateral adrenal glands. There are hypodensities in the right kidney. These are consistent for cysts. No follow up required. No acute findings of the left kidney. Normal visualized stomach. Normal small intestine. Stool throughout the colon. The appendix is visualized and appears normal. There are calcifications of the abdominal aorta. This is consistent for atherosclerotic disease. There is NO abdominal aortic aneurysm. Vascular workup can be obtained based on clinical correlation. Normal inferior vena cava. Subcentimeter mesenteric lymph nodes. Normal urinary bladder. There is enlargement of the prostate gland. There is an umbilical hernia containing fat. There are diffuse degenerative changes of the visualized lumbar spine. There is bilateral neural foraminal stenosis at L4-5 and L5-S1. CT/CT Abd/Pelvis W/WO Contrast IMPRESSION: (NOT LISTED IN ORDER OF SIGNIFICANCE) Constipation. There is enlargement of the prostate gland. Other findings as above. Electronically Signed: Cristobal Rey MD at 16:18 EST ,
--- OUTSIDE RECORDS SUMMARY | 2023-09-19 13:14 | XMS RPT_ITS | CCD ---
Author Name Unknown Address [address] [facility] [facility] [address] [place] [address] Organization [facility] Care Team Providers Care Chemical Engineering Technologist Name Role Phone GRISEL XIAO DO Primary Care Physician RIGO BALLARD DO Attending Unavailable GRISEL XIAO DO Primary Care Unavailable Medications Current Medications Medication Drug Class(es) Dates Sig (Normalized) Sig (Original) pravastatin sodium 20 mg oral tablet (1 source) HMG-CoA Reductase Inhibitor Start: 01-03-2020 pravastatin 20 mg oral tablet Dose : 40 mg = 2 tab(s), Oral, qDay, 0 Refill(s) Start Date: 01/03/20 Status: Ordered Completed/Discontinued Medications Medication Drug Class(es) Dates Sig (Normalized) Sig (Original) amLODIPine 2.5 mg oral tablet (1 source) Dihydropyridine Calcium Channel Yvette Start: 03-03-2020 End: 04-02-2020 amLODIPine 2.5 mg oral tablet Dose : 2.5 mg = 1 tab(s), Oral, qDay, # 30 tab(s), 0 Refill(s), Pharmacy: [facility]/pharmacy #[id number], 180.3, cm, 03/01/20 14:30:00 EDT, Height, kg, 03/01/20 14:30:00 EDT, Dosing Weight Start Date: 03/03/20 Stop Date: 04/02/20 Status: Ordered OXcarbazepine 600 mg oral tablet (2 sources) Anti-epileptic Agent Start: 03-11-2020 End: 04-10-2020 Trileptal 600 mg oral tablet Dose : 600 mg = 1 tab(s), Oral, BID, # 60 tab(s), 0 Refill(s), Pharmacy: [facility]/pharmacy #[id number], 180.3, cm, 03/01/20 14:30:00 EDT, Height, kg, 03/01/20 14:30:00 EDT, Dosing Weight Start Date: 03/11/20 Stop Date: 04/10/20 Status: Ordered Results Test Name Value Interpretation Reference Range Facil ity Vital Signs Date Time Vital Sign Value Performing Clinician Chayito braswell 11-12-2022 03:20-0500 Diastolic Blood Pressure Non-Invasive 79 1 RIGO FROMStorwizeT DO [facility] 11-12-2022 03:20-0500 Heart rate 73 /min RIGO WAYNEStorwizeT DO [facility] 11-12-2022 03:20-0500 Respiratory rate 19 /min RIGO WAYNEStorwizeT DO [facility] 11-12-2022 03:20-0500 Systolic Blood Pressure Non-Invasive 133 1 RIGO WAYNEStorwizeT DO [facility] 11-12-2022 02:27-0500 Blood Pressure Cuff Size RIGO WAYNEStorwizeT DO [facility] 11-12-2022 02:27-0500 Blood Pressure Location RIGO FROMMELT DO [facility] 11-12-2022 02:27-0500 Blood Pressure Method RIGO BALLARD D O [facility] 11-12-2022 02:27-0500 Body height 180.3 cm RIGO WAYNEStorwizeT DO [facility] 11-12-2022 02:27-0500 Body temperature 97.52 [degF] RIGO WAYNEStorwizeT DO [facility] 11-12-2022 02:27-0500 Body weight 81.8 kg RIGO WAYNEStorwizeT DO [facility] 02-21-2023 02:27-0500 Diastolic Blood Pressure Non-Invasive 85 1 RIGO BALLARD DO [facility] 11-12-2022 02:27-0500 Heart rate 80 /min RIGO BALLARD DO [facility] 11-12-2022 02:27-0500 Respiratory rate 17 /min RIGO BALLARD DO [facility] 11-12-2022 02:27-0500 Systolic Blood Pressure Non-Invasive 138 1 RIGO BALLARD DO [facility] Encounters Encounter Date Encounter Type Care Provider Facility Start: 11-12-2022 End: 11-12-2022 Emergency department patient visit RIGO BALLARD DO Facility:B Start: 11-12-2022 End: 11-12-2022 Emergency department patient visit RIGO BALLARD DO [facility] Immunizations Immunization Date Immunization Notes Care Provider Fa [facility] 01-03-2020 tetanus toxoid, redu tata diphtheria toxoid, and acellular pertussis vaccine, adsorbed [facility] Payers Date Payer Category Payer Unknown [id number] 1950 Unknown [id number] Social History Date Type Detail Facility Start: 01-03-2020 Tobacco smoking status Never s moked tobacco (finding) [facility] Sex Assigned At Sex [facility] Functional Status Date Assessment Result Facility 11-12-2022 Functional Status [facility] ad edi [facility] Mental Status Date Assessment Result Facility 11-12-2022 Mental Status Orientation Oriented x 4 [facility] 11-12-2022 Mental Status [facility] Evaluation + Plan note 11-12-2022 Note Date & Type Note Facility 11-12-2022 Evaluation + Plan note Diagnostic Tests PendingOxcarbazepine Level 11/12/22 [facility] Discharge instructions 11-12-2022 Note Date & Type Note Facility 11-12-2022 Hospital Discharg e instructions Patient Education 11/12/2022 03:31:03 Seizures and Epilepsy Seizures and Epilepsy Talk to your child's healthcare provider about treatment for epilepsy. Seizures are sudden, uncontrollable events that occur when the brain sends out abnormal electrical signals to the body. There are many reasons why people have seizures. When a child has seizures repeatedly, he or she is considered to have epilepsy. Usually, this condition can be partially or completely controlled. With proper treatment, epilepsy won t stop your child from enjoying life. Why do people develop epilepsy? Most cases of epilepsy start in childhood. Many children who are diagnosed with epilepsy continue to have seizures into adulthood. Often, doctors can t explain why a child has epilepsy. Certain factors, such as head injury, brain infection, stroke, or tumors can raise a child s risk for getting epilepsy. Seizure disorders like epilepsy may run in families. More and more people are being diagnosed with genetic causes for epilepsy as genetic testing becomes more widely available. What are seizures? Seizures are caused by problems with the electrical signals in the brain. Common symptoms include: Convulsions (muscle jerking) involving either part of the body or the whole body Loss of consciousness Sudden stiffening of the body Loss of bladder control Repetitive movements, such as chewing, lip smacking, or clapping Short periods of memory loss or confusion Periods of blank staring or blinking (with loss of awareness) Unresponsiveness to questions or instructions A child may feel sudden fear, anger, or panic before a seizure. He or she may notice changes in the way things look, sound, smell, or feel before the seizure. These are referred to as auras and are actually the earliest part of a seizure. After the seizure is over, the child is often weak or confused. Sometimes children will sleep for a prolonged period of time after a seizure. This is referred to as the postictal period. Diagnosing epilepsy A neurologist is a doctor who specializes in the brain and other parts of the nervous system. If your child has seizures, a neurologist will evaluate him or her to see if a cause can be found. You ll be asked questions about your child s health and the history of the seizures. An EEG (electroencephalogram) is often done. This is a test that records brain activity. Other tests may also be done, including an MRI or a lumbar puncture (spinal tap). In some cases, the doctor may order genetic testing. Treating epilepsy Your doctor will discuss with you the best way to control your child s epilepsy. Seizures can often be controlled with medicine. Some medicines are given on a daily basis to prevent seizures. Others are prescribed to stop a seizure once it has started. In some cases, it may be hard to control the frequency of your child's seizures. In such cases, doctors may suggest a special diet called the ketogenic diet. There is also a magnetic device that can be implanted underneath the skin in your child's chest. This device stimulates the vagus nerve in an effort to end the seizure. For some children, surgery may be an option. Many children stop having seizures as they get older. Even those who continue to have seizures can live normal and happy lives. 5060-5950 The Ident[employer]. [address] [place] [address]. All rights reserved. This information is not intended as a substitute for professional medical care. Always follow your healthcare professional's instructions. 11/12/2022 03:31:01 Seizure, Recurrent (Adult) Recurrent Seizure (Adult) You have had another seizure today. A common cause of seizures that keep happening (recurrent seizures) is missing doses of seizure medicine. But sometimes seizures are hard to control even when you take the medicine correctly. If this is the case for you, your healthcare provider may need to increase your dosage. Or you may need to add or change to another medicine. Home care Follow these tips when caring for yourself at home. For this seizure: Seizures aren t predictable. So avoid doing anything that might cause danger to you or other people if you have another seizure. Until the seizures are under good control, take these precautions: oDon t drive, ride a motorcycle, or ride a bike. oDon t operate dangerous equipment such as power tools oTake showers instead of baths. oDon t swim or climb ladders, trees, or roofs. Tell your close friends and relatives about your seizure. Teach them what to do for you if it happens again. If medicine was prescribed to prevent seizures, take it exactly as directed. It does not work when taken as needed. Missing doses will increase the risk of having another seizure. If you miss a dose, take the missed dose as soon as you remember. If it is almost time for your next dose, skip the missed dose. Restart the medicine at your next scheduled time. Don t take extra medicine to make up the missed dose. Wear a Medic-Alert bracelet to let emergency personnel know about your condition. Follow a regular sleep schedule such that you get at least 6 to 8 hours of restful sleep every night. This is especially important when you are sick with a cold or flu and/or another type of infection. For future seizures, if you are alone: If you feel a seizure coming on, lie down on a bed or on the floor with something soft under your head. Lie on your left side, not on your back. This will keep you from falling. It will also let fluid drain out of your mouth and prevent choking. Be sure you are clear of any objects that might injure you during the seizure. Call for help if there is time. For future seizures, if someone is with you: The person should help you get into a safe position and call for help. The person shouldn t try to force anything in your mouth once the seizure begins. This could harm your teeth or jaw. Follow-up care Follow up with your healthcare provider. Keep a seizure calendar to record how often you have a seizure. If you are being started on anti-seizure medicine, make sure that you use additional control. Seizure medicine can affect how well control pills work, and you could become . Avoid alcohol until your doctor tells you it s OK. Note: For the safety of yourself and others on the road, certain states require that the treating doctor tell the Public Health Department about any adult who is treated for a seizure and is at risk of more seizures. In this case, the Department of Motor Vehicles will be told. A restriction will be put on your special client bus driver s license until a doctor gives you medical clearance to drive again. Contact your treating doctor to find out if your state requires the reporting of patients with a seizures condition. When to seek medical advice Call your healthcare provider right away if any of these occur: Seizures happen more often or last longer than usual A seizure lasts over 5 minutes You don t wake up between seizures Confusion that lasts more than 30 minutes after a seizure Injury during a seizure Fever over 100.4 F (38.0 C), or as advised Unusual irritability, drowsiness, or confusion Stiff or painful neck Headache that gets worse [id number] The Ident[employer]. [address] [place] [address]. All rights reserved. This information is not intended as a substitute for professional medical care. Always follow your healthcare professional's instructions. Follow Up Care 11/12/2022 02:16:48 With:GRISEL XIAO DO Address: [facility] [address] [place] [phone] When:2-4 days [facility] Clinical Note 11-12-2022 Note Date & Type Note Facility 11-12-2022 Note ORIGINAL EXAMINATION: CT OF THE HEAD WITHOUT CONTRAST11/12/2022 3:15 am TECHNIQUE: CT of the head was performed without the administration of intravenous contrast. Automated exposure control, iterative reconstruction, and/or weight based adjustment of the mA/kV was utilized to reduce the radiation dose to as low as reasonably achievable. COMPARISON: 03/01/2020 CT head HISTORY: ORDERING SYSTEM PROVIDED HISTORY: Reason for Exam: pain FINDINGS: There is no intracranial hemorrhage, mass effect or abnormal extra-axial fluid collection. There is no CT evidence for acute large territorial infarction. 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 The ventricles are unremarkable for patient age. The skull base and calvarium demonstrate no acute abnormality. The included paranasal sinuses and mastoid air cells are predominantly clear. IMPRESSION: No acute intracranial abnormality. I have personally reviewed the images of this examination and agree with the resident's findings and interpretation. Interpreted by: Mo Espana MD Preliminary Report By: Patric Forbes Electronically signed By Mo Espana MD Dictated Date: 11/12/2022 3:17:33 AM Prelim Date: 11/12/2022 3:23:27 AM Sign Date: 11/12/2022 3:55:09 AM Ordering Provider: RIGO BALLARD [facility] Clinical Note 11-12-2022 Note Date & Type Note Facility 11-12-2022 Note Discharge Instructions Thank you for allowing [facility] to assist you with your healthcare needs. The following is important discharge information regarding your hospital visit. Diagnosis from Today's Visit Seizure What to Do Next Instructions from Your Care Team No qualifying data available. Post Acute Orders No qualifying data available. You Need to Schedule the Following Appointments Follow Up with GRISEL XIAO DO When Within 2-4 days Where: [facility] [address] [place] [phone] Allergies NKA Medications Please ask your primary doctor or pharmacist before taking any other medication not listed, including over the counter drugs, herbal medications, vitamins and or supplements as they may interact with your home medications. What How Much When Instructions Last Dose Unchanged amLODIPine (amLODIPine 2.5 mg oral tablet) 1 tab(s) by mouth Once a day Duration: 30 Days Unchanged OXcarbazepine (Trileptal 300 mg oral tablet) 1 tab(s) by mouth Two (2) times a day Duration: 7 Days Unchanged OXcarbazepine (Trileptal 600 mg oral tablet) 1 tab(s) by mouth Two (2) times a day Duration: 30 Days Unchanged pravastatin (pravastatin 20 mg oral tablet) 2 tab(s) by mouth Once a day Please take this list to your next doctor s visit. Bring all medications you take, including over the counter medications, herbals and other supplements with you to your doctor s visit. Patients and families are reminded to discard old lists and to update any records with all medication providers or retail pharmacies. Education Materials Seizures and Epilepsy Talk to your child's healthcare provider about treatment for epilepsy. Seizures are sudden, uncontrollable events that occur when the brain sends out abnormal electrical signals to the body. There are many reasons why people have seizures. When a child has seizures repeatedly, he or she is considered to have epilepsy. Usually, this condition can be partially or completely controlled. With proper treatment, epilepsy won t stop your child from enjoying life. Why do people develop epilepsy? Most cases of epilepsy start in childhood. Many children who are diagnosed with epilepsy continue to have seizures into adulthood. Often, doctors can t explain why a child has epilepsy. Certain factors, such as head injury, brain infection, stroke, or tumors can raise a child s risk for getting epilepsy. Seizure disorders like epilepsy may run in families. More and more people are being diagnosed with genetic causes for epilepsy as genetic testing becomes more widely available. What are seizures? Seizures are caused by problems with the electrical signals in the brain. Common symptoms include: Convulsions (muscle jerking) involving either part of the body or the whole body Loss of consciousness Sudden stiffening of the body Loss of bladder control Repetitive movements, such as chewing, lip smacking, or clapping Short periods of memory loss or confusion Periods of blank staring or blinking (with loss of awareness) Unresponsiveness to questions or instructions A child may feel sudden fear, anger, or panic before a seizure. He or she may notice changes in the way things look, sound, smell, or feel before the seizure. These are referred to as auras and are actually the earliest part of a seizure. After the seizure is over, the child is often weak or confused. Sometimes children will sleep for a prolonged period of time after a seizure. This is referred to as the postictal period. Diagnosing epilepsy A neurologist is a doctor who specializes in the brain and other parts of the nervous system. If your child has seizures, a neurologist will evaluate him or her to see if a cause can be found. You ll be asked questions about your child s health and the history of the seizures. An EEG (electroencephalogram) is often done. This is a test that records brain activity. Other tests may also be done, including an MRI or a lumbar puncture (spinal tap). In some cases, the doctor may order genetic testing. Treating epilepsy Your doctor will discuss with you the best way to control your child s epilepsy. Seizures can often be controlled with medicine. Some medicines are given on a daily basis to prevent seizures. Others are prescribed to stop a seizure once it has started. In some cases, it may be hard to control the frequency of your child's seizures. In such cases, doctors may suggest a special diet called the ketogenic diet. There is also a magnetic device that can be implanted underneath the skin in your child's chest. This device stimulates the vagus nerve in an effort to end the seizure. For some children, surgery may be an option. Many children stop having seizures as they get older. Even those who continue to have seizures can live normal and happy lives. [id number] The Ident[employer]. [address] [place] [address], [place] [address]. All rights reserved. This information is not intended as a substitute for professional medical care. Always follow your healthcare professional's instructions. Recurrent Seizure (Adult) You have had another seizure today. A common cause of seizures that keep happening (recurrent seizures) is missing doses of seizure medicine. But sometimes seizures are hard to control even when you take the medicine correctly. If this is the case for you, your healthcare provider may need to increase your dosage. Or you may need to add or change to another medicine. Home care Follow these tips when caring for yourself at home. For this seizure: Seizures aren t predictable. So avoid doing anything that might cause danger to you or other people if you have another seizure. Until the seizures are under good control, take these precautions: oDon t drive, ride a motorcycle, or ride a bike. oDon t operate dangerous equipment such as power tools oTake showers instead of baths. oDon t swim or climb ladders, trees, or roofs. Tell your close friends and relatives about your seizure. Teach them what to do for you if it happens again. If medicine was prescribed to prevent seizures, take it exactly as directed. It does not work when taken as needed. Missing doses will increase the risk of having another seizure. If you miss a dose, take the missed dose as soon as you remember. If it is almost time for your next dose, skip the missed dose. Restart the medicine at your next scheduled time. Don t take extra medicine to make up the missed dose. Wear a Medic-Alert bracelet to let emergency personnel know about your condition. Follow a regular sleep schedule such that you get at least 6 to 8 hours of restful sleep every night. This is especially important when you are sick with a cold or flu and/or another type of infection. For future seizures, if you are alone: If you feel a seizure coming on, lie down on a bed or on the floor with something soft under your head. Lie on your left side, not on your back. This will keep you from falling. It will also let fluid drain out of your mouth and prevent choking. Be sure you are clear of any objects that might injure you during the seizure. Call for help if there is time. For future seizures, if someone is with you: The person should help you get into a safe position and call for help. The person shouldn t try to force anything in your mouth once the seizure begins. This could harm your teeth or jaw. Follow-up care Follow up with your healthcare provider. Keep a seizure calendar to record how often you have a seizure. If you are being started on anti-seizure medicine, make sure that you use additional control. Seizure medicine can affect how well control pills work, and you could become . Avoid alcohol until your doctor tells you it s OK. Note: For the safety of yourself and others on the road, certain states require that the treating doctor tell the Public Health Department about any adult who is treated for a seizure and is at risk of more seizures. In this case, the Department of Motor Vehicles will be told. A restriction will be put on your special client bus driver s license until a doctor gives you medical clearance to drive again. Contact your treating doctor to find out if your state requires the reporting of patients with a seizures condition. When to seek medical advice Call your healthcare provider right away if any of these occur: Seizures happen more often or last longer than usual A seizure lasts over 5 minutes You don t wake up between seizures Confusion that lasts more than 30 minutes after a seizure Injury during a seizure Fever over 100.4 F (38.0 C), or as advised Unusual irritability, drowsiness, or confusion Stiff or painful neck Headache that gets worse [id number] The Ident[employer]. [address] [place] [address]. All rights reserved. This information is not intended as a substitute for professional medical care. Always follow your healthcare professional's instructions. Additional Information VACCINATE! IT SAVES LIVES! Members of the community who have not yet received the COVID-19 vaccine and would like to receive it can visit one of [facility] vaccine clinics. There are many vaccine clinic locations within the [facility]. For locations and available times, please visit www.gettheshot.coronavirus.[place].gov/. It is important to note that some COVID mobile vaccine clinics are held outdoors and may be canceled in rainy or stormy conditions. To learn more about pediatric vaccinations (ages 5-11), we invite you to visit the [facility] webpage. [email or web address].[email or web address].org/pages/2 [email or web address]-Idttv-Nixqtkseyfl-Frequently-[email or web address] -Questions.html To learn more about the COVID-19 vaccine, we invite you to visit the CDC website for a list of frequently asked questions. https://www.cdc.gov/coronavirus/2019-n cov/vaccines/faq.html [email or web address] Patient Portal Access Instructions: Stay connected with your healthcare team and access your personal medical information anytime with the [facility] Patient Portal. If you would like a full copy of your medical records please contact the [facility] Medical Records Department Friday through Friday between 8a.m. and 4:30p.m. Please follow the directions below to access the portal: 1.Access the email account you provided upon registration to the [facility].2.Look for an invitation email from [facility].3.Open the email and access the invitation link: Accept Invitation to [facility]4.Fill in the required montgomery to create your account. Sign into [email or web address] with your username and password that you created in the above steps to stay up to date. You can then view a summary of results, a summary of your visits, and the ability to download your summaries to your computer or send the information securely to a physician. Remember that your healthcare information is confidential, so carefully consider who you will allow to register on the [employer] Patient Portal for access to your information. You can also access the [employer] Patient Portal on the [employer] chang. Simply click on Health Records under Health Data and then click on the [employer] logo. HOW TO SAFELY DISPOSE OF PRESCRIPTION MEDICATIONS Please use one of the following methods to safely dispose of your unused medications. 1.Use a drug disposal kit: the drug disposal pouch allows you to safely discard your old and unused drugs. Ask your nurse to give you one when you are discharged.2.Visit a local take-back location: Many local pharmacies and police departments have programs that collect old and unwanted prescription drugs. Call your local pharmacy or go to http://bit.ly/5E9Sm8q to find one close to you.3.Make use of household items: Use cat litter or old coffee grounds to dispose medications if other options are not available. Mix your drugs with these household products, seal them in an airtight container and throw it into the garbage. Call [facility]: [phone] to be sure your drugs can be disposed of in this way. Some medicines may require a different approach.4.Never flush your medications down the toilet. IF YOU HAVE BEEN PRESCRIBED AN OPIOIDS FOR PAIN If you have been prescribed an opioid (such as hydrocodone, oxycodone or morphine), it is critical to understand the possible side effects and risks of opioid pain medications. Even when taken as directed, opioids can have several side effects including: Tolerance, meaning you might need to take more of a medication for the same pain relief. Nausea, vomiting and/or constipation. Sleepiness, dizziness, dry mouth, confusion, depression or itching. Physical dependence, meaning you have withdrawal symptoms when a medication is stopped ? this can develop within a few days. KNOW YOUR RESPONSIBILITIES It is important to know exactly how much and how often to take the opioid pain medications you are prescribed. Never take opioids in higher amounts or more often than prescribed. Do not combine opioids with alcohol or other drugs that cause drowsiness, such as benzodiazepines, also known as benzos, including diazepam and alprazolam, muscle relaxants or sleep aids. Never sell or share prescription opioids. This is illegal. Store opioids in a secure place and out of reach of others (including children, family, friends and visitors). The last page(s) of this document has been signed and retained as a CHART COPY Signatures Patient Education Materials Seizures and Epilepsy Seizure, Recurrent (Adult) Medication Leaflets My discharge plan and instructions have been reviewed and explained to me and I,SHERLEY MILLIGAN understand my current condition and have read and understand these discharge instructions. I have received a written copy of the plan/instructions. If I have questions, I am aware that I should contact my doctor. Patient/Customer Support Coordinator Signature: _ Date/Time: Relationship to Patient: Witness Name/Signature: Date/Time: [facility] Clinical Note 11-12-2022 Note Date & Type Note Facility 11-12-2022 Note ORIGINAL EXAMINATION: CT OF THE HEAD WITHOUT CONTRAST11/12/2022 3:15 am TECHNIQUE: CT of the head was performed without the administration of intravenous contrast. Automated exposure control, iterative reconstruction, and/or weight based adjustment of the mA/kV was utilized to reduce the radiation dose to as low as reasonably achievable. COMPARISON: 03/01/2020 CT head HISTORY: ORDERING SYSTEM PROVIDED HISTORY: Reason for Exam: pain FINDINGS: There is no intracranial hemorrhage, mass effect or abnormal extra-axial fluid collection. There is no CT evidence for acute large territorial infarction. 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 The ventricles are unremarkable for patient age. The skull base and calvarium demonstrate no acute abnormality. The included paranasal sinuses and mastoid air cells are predominantly clear. IMPRESSION: No acute intracranial abnormality. I have personally reviewed the images of this examination and agree with the resident's findings and interpretation. Interpreted by: Mo Espana MD Preliminary Report By: Patric Forbes Electronically signed By Mo Espana MD Dictated Date: 11/12/2022 3:17:33 AM Prelim Date: 11/12/2022 3:23:27 AM Sign Date: 11/12/2022 3:55:09 AM Ordering Provider: [facility] Clinical Note 11-12-2022 Note Date & Type Note Facility 11-12-2022 Note ORIGINAL EXAMINATION: ONE XRAY VIEW OF THE CHEST 11/12/2022 2:45 am COMPARISON: 03/01/2020 HISTORY: ORDERING SYSTEM PROVIDED HISTORY: Reason for Exam: seizure FINDINGS: The cardiac and mediastinal contours are within normal limits. There is no appreciable pneumothorax, pleural effusion, or vascular congestion. No focal consolidations. Degenerative changes are noted of the spine. Advanced degenerative changes of the glenohumeral joints left greater than right. IMPRESSION: 1. No evidence of acute cardiopulmonary process. Interpreted by: Kurt Buitrago DO Preliminary Report By: Kurt Buitrago DO Electronically signed By Kurt Buitrago DO Dictated Date: 11/12/2022 2:51:30 AM Prelim Date: 11/12/2022 2:52:15 AM Sign Date: 11/12/2022 2:52:15 AM Ordering Provider: RIGO [facility] Clinical Note 11-12-2022 Note Date & Type Note Facility 11-12-2022 Note ORIGINAL EXAMINATION: ONE XRAY VIEW OF THE CHEST 11/12/2022 2:45 am COMPARISON: 03/01/2020 HISTORY: ORDERING SYSTEM PROVIDED HISTORY: Reason for Exam: seizure FINDINGS: The cardiac and mediastinal contours are within normal limits. There is no appreciable pneumothorax, pleural effusion, or vascular congestion. No focal consolidations. Degenerative changes are noted of the spine. Advanced degenerative changes of the glenohumeral joints left greater than right. IMPRESSION: 1. No evidence of acute cardiopulmonary process. Interpreted by: Kurt Buitrago DO Preliminary Report By: Kurt Buitrago DO Electronically signed By Kurt Buitrago DO Dictated Date: 11/12/2022 2:51:30 AM Prelim Date: 11/12/2022 2:52:15 AM Sign Date: 11/12/2022 2:52:15 AM Ordering Provider: RIGO [facility] Hospital course Narrative Note Date & Type Note Facility Hospital course Narrative No data available for this section [facility] Summary Purpose Family History No Family History Records Found Advance Directives No Advanced Directives Records Found Additional Source Comments Care Team (unrecognized sect ion and content) Care Team Personnel Name: GRISEL XIAO DO Member Role: Primary Care Physician Address: Address: [facility] [address] [place] [id number]- [place] Name: RIGO BALLARD DO Position: ED Physician Member Role: ED Physician Address: Address: [address] [place] [id number] Care Team Related Persons Name: CHELVERENICEA Address: Home [address] [place] [address] (unrecognized sect ion and content) No Status Records Found INFORMATION SOURCE (unrecogn ized section and content) FOR RECORDS PERTAINING TO PATIENTS WHO ARE OR HAVE BEEN ENROLLED IN A CHEMICAL DEPENDENCY/SUBSTANCEABUSE PROGRAM, SOME INFORMATION MAY BE OMITTED. This clinical summary was aggregated from multiple sources. Caution should be exercised in using it in the provision of clinical care. This summary normalizes information from multiple sources, and as a consequence, information in this document may materially change the coding, format and clinical context of patient data. In addition, data may be omitted in some cases. CLINICAL DECISIONS SHOULD BE BASED ON THE PRIMARY CLINICAL RECORDS. [facility]. provides no warranty or guarantee of the accuracy or completeness of information in this document.
[2023-09-19 13:35] LABS: CREATININE FINGERSTICK < 1.0 mg/dL (0.70-1.30); EGFR FINGERSTICK > 60.0000 mL/min (>60)
== END | disposition home or self-care (01) ==
PROVIDERS: PCP Internal Medicine; Referring Provider Urology; Visit Provider Urology
DX: C61 Malignant neoplasm of prostate (principal)
CPT/HCPCS: 74178; Q9967

== ENCOUNTER → 2023-09-24 | Outpatient (CLI) | payer OTHER, SELFPAY ==
--- NOTE | 2023-09-24 11:43 | RAD_ITS ---
STUDY: X-RAY - UNILATERAL RIBS ( RIGHT ) WITH CHEST REASON FOR EXAM: Male, 73 years old. Malignant neoplasm of prostate TECHNIQUE - RIBS: 2 view(s) of the ribs. TECHNIQUE - CHEST: Single AP portable view of the chest. COMPARISON: None. FINDINGS - RIBS: Unremarkable visualized ribs without a demonstrated fracture. FINDINGS - CHEST: The lungs are clear and expanded. There is no demonstrated pleural abnormality. Normal size heart. Normal mediastinum and noe. Normal visualized pulmonary arteries. Normal visualized aortic arch and descending thoracic aorta. There are diffuse degenerative changes of the visualized thoracic spine. There is degenerative osteoarthritis of the bilateral shoulders. There is no demonstrated abnormality of the visualized soft tissue structures of the upper abdomen. RAD/Ribs Uni Min 3V w/PA Chest IMPRESSION: RIBS: No distinct right-sided rib fractures. CHEST: No acute cardiopulmonary disease. Electronically Signed: Patricia Posadas MD at 17:02 EST ,
--- NOTE | 2023-09-24 11:43 | RAD_ITS ---
STUDY: X-RAY - LEFT CLAVICLE REASON FOR EXAM: Male, 73 years old. Malignant neoplasm of prostate TECHNIQUE: 2 view(s) of the clavicle. COMPARISON: None. FINDINGS: Normal clavicle. There is degenerative arthrosis of the acromioclavicular joint without inferior osseous prominence. Normal visualized sternoclavicular articulation. Moderate degenerative disease of glenohumeral articulation. Question calcific tendinitis. Normal visualized pulmonary apex. RAD/Clavicle IMPRESSION: Degenerative disease at the acromioclavicular joint and glenohumeral articulation. No acute fracture or subluxation. Electronically Signed: Patricia Posadas MD at 17:00 EST ,
--- OUTSIDE RECORDS SUMMARY | 2023-09-24 12:51 | XMS RPT_ITS | CCD ---
Author Name Unknown Address [address] [place] [address] Organization [facility] Care Team Providers Care Bit Bender Name Role Phone GRISEL XIAO DO Primary [...] qDay, # 30 tab(s), 0 Refill(s), Pharmacy: [facility]/pharmacy #[id number], 180.3, cm, 03/01/20 14:30:00 EDT, Height, kg, 03/01/20 14:30:00 EDT, Dosing Weight Start Date: 03/03/20 Stop Date: 04/02/20 Status: Ordered OXcarbazepine 600 mg oral tablet (2 sources) Anti-epileptic Agent Start: 03-11-2020 End: 04-10-2020 Trileptal 600 mg oral tablet Dose : 600 mg = 1 tab(s), Oral, BID, # 60 tab(s), 0 Refill(s), Pharmacy: [facility]/pharmacy #[id number], 180.3, cm, 03/01/20 14:30:00 EDT, Height, kg, 03/01/20 14:30:00 EDT, Dosing Weight Start Date: 03/11/20 Stop Date: 04/10/20 Status: Ordered Results Test Name Value Interpretation Reference Range Facil ity Vital Signs Date Time Vital Sign Value Performing Clinician Chayito braswell 11-12-2022 03:20-0500 Diastolic Blood Pressure Non-Invasive 79 1 RIGO FROMWiztangoT DO [facility] 11-12-2022 03:20-0500 Heart rate 73 /min RIGO WAYNEWiztangoT DO [facility] 11-12-2022 03:20-0500 Respiratory rate 19 /min RIGO WAYNEWiztangoT DO [facility] 11-12-2022 03:20-0500 Systolic Blood Pressure Non-Invasive 133 1 RIGO WAYNEWiztangoT DO [facility] 11-12-2022 02:27-0500 Blood Pressure Cuff Size RIGO WAYNEWiztangoT DO [facility] 11-12-2022 02:27-0500 Blood Pressure Location RIGO FROMMELT DO [facility] 11-12-2022 02:27-0500 Blood Pressure Method RIGO BALLARD D O [facility] 11-12-2022 02:27-0500 Body height 180.3 cm RIGO WAYNEWiztangoT DO [facility] 11-12-2022 02:27-0500 Body temperature 97.52 [degF] RIGO WAYNEWiztangoT DO [facility] 11-12-2022 02:27-0500 Body weight 81.8 kg RIGO WAYNEWiztangoT DO [facility] 02-21-2023 02:27-0500 Diastolic Blood Pressure Non-Invasive 85 1 RIGO BALLARD DO [facility] 11-12-2022 02:27-0500 Heart rate 80 /min RIGO BALLARD DO [facility] 11-12-2022 02:27-0500 Respiratory rate 17 /min RIGO BALLARD DO [facility] 11-12-2022 02:27-0500 Systolic Blood Pressure Non-Invasive 138 1 RIGO BALLARD DO [facility] Encounters Encounter Date Encounter Type Care Provider Facility Start: 11-12-2022 End: 11-12-2022 Emergency department patient visit RIGO BALLARD DO Facility:B Start: 11-12-2022 End: 11-12-2022 Emergency department patient visit RIGO BALLARD DO [facility] Immunizations Immunization Date Immunization Notes Care Provider Fa [facility] 01-03-2020 tetanus toxoid, redu tata diphtheria toxoid, and acellular pertussis vaccine, adsorbed [facility] Payers Date Payer Category Payer Unknown [id number] 1950 Unknown [id number] Social History Date Type Detail Facility Start: 01-03-2020 Tobacco smoking status Never s moked tobacco (finding) [facility] Sex Assigned At Sex [facility] Functional Status Date Assessment Result Facility 11-12-2022 Functional Status [facility] ad edi [facility] Mental Status Date Assessment Result Facility 11-12-2022 Mental Status Orientation Oriented x 4 [facility] 11-12-2022 Mental Status [facility] Evaluation + Plan note 11-12-2022 Note Date & Type Note Facility 11-12-2022 Evaluation + Plan note Diagnostic Tests PendingOxcarbazepine Level 11/12/[address] [facility] Discharge instructions 11-12-2022 [...] seizures can live normal and happy lives. 7647-8606 [employer]. [address] [place] [address]. All rights reserved. 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 [address] [place] [address]. All rights reserved. This information is not intended as a substitute for professional medical care. Always follow your healthcare professional's instructions. Follow Up Care 11/12/2022 02:16:48 With:GRISEL XIAO DO Address: [facility] [address] [place] [phone] When:2-4 days [facility] Clinical Note 11-12-2022 Note Date & [...] 11/12/2022 3:55:09 AM Ordering Provider: RIGO BALLARD [facility] Clinical Note 11-12-2022 Note Date & [...] XIAO DO When Within 2-4 days Where: [facility] [address] [place] [phone] Allergies NKA Medications Please ask your primary [...] seizures can live normal and happy lives. 4526-0630 [employer]. [address] [place] [address], [place] [address]. All rights reserved. 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 [address] [place] [address]. All rights reserved. This information is not intended as a substitute for professional medical care. Always follow your healthcare professional's instructions. Additional Information VACCINATE! IT SAVES LIVES! Members of the community who have not yet received the COVID-19 vaccine and would like to receive it can visit one of [facility] vaccine clinics. There are many vaccine clinic locations within the [facility]. For locations and available times, please visit www.[email or web address].[place].gov/. It is important to note that some COVID mobile vaccine clinics are held outdoors and may be canceled in rainy or stormy conditions. To learn more about pediatric vaccinations (ages 5-11), we invite you to visit the [facility] webpage. [email or web address]/pages/[email or web address]-Rhtoo-Hbvhgamuwrx-Frequently-[email or web address] -Questions.html To learn more about the COVID-19 vaccine, we invite you to visit the CDC website for a list of frequently asked questions. https://www.cdc.gov/coronavirus/2019-n cov/vaccines/faq.html [facility] Patient Portal Access Instructions: Stay connected with your healthcare team and access your personal medical information anytime with the [employer] Patient Portal. If you would like a full copy of your medical records please contact the [facility] Medical Records Department Friday through Friday between 8a.m. and 4:30p.m. Please follow the directions below to access the portal: 1.Access the email account you provided upon registration to the [facility].2.Look for an invitation email from [facility].3.Open the email and access the invitation link: Accept Invitation to [facility]4.Fill in the required montgomery to create your account. Sign into [email or web address] with your username and password that you [...] you will allow to register on the [employer] Patient Portal for access to your information. You can also access the [employer] Patient Portal on the [employer] chang. Simply click on Health Records under Health Data and then click on the [employer] logo. HOW TO SAFELY DISPOSE OF PRESCRIPTION [...] Call your local pharmacy or go to http://bit.ly/6A6Bo5k to find one close to you.3.Make use of household items: Use cat litter or old coffee grounds to dispose medications if other options are not available. Mix your drugs with these household products, seal them in an airtight container and throw it into the garbage. Call [facility]: [phone] to be sure your drugs can be [...] aware that I should contact my doctor. Patient/Mechanical Equipment Test Engineer Signature: _ Date/Time: Relationship to Patient: Witness Name/Signature: Date/Time: [facility] Clinical Note 11-12-2022 Note Date & [...] Sign Date: 11/12/2022 3:55:09 AM Ordering Provider: [facility] Clinical Note 11-12-2022 Note Date & Type [...] Date: 11/12/2022 2:52:15 AM Ordering Provider: RIGO [facility] Clinical Note 11-12-2022 Note Date & [...] Date: 11/12/2022 2:52:15 AM Ordering Provider: RIGO [facility] Hospital course Narrative Note Date & Type Note Facility Hospital course Narrative No data available for this section [facility] Summary Purpose Family History No Family History Records Found Advance Directives No Advanced Directives Records Found Additional Source Comments Care Team (unrecognized sect ion and content) Care Team Personnel Name: GRISEL XIAO DO Member Role: Primary Care Physician Address: Address: [facility] [address] [place] [id number]- [place] Name: RIGO BALLARD DO Position: ED Physician Member Role: ED Physician Address: Address: [address] [place] [id number] Care Team Related Persons Name: CHELVERENICEA Address: Home [address] [place] [address] (unrecognized sect ion and content) No Status [...] BE BASED ON THE PRIMARY CLINICAL RECORDS. [facility] [employer] [facility]. provides no warranty or guarantee of the accuracy or completeness of information in this document.
== END | disposition home or self-care (01) ==
LOC: RAD 11:41
PROVIDERS: PCP Internal Medicine; Referring Provider Urology; Visit Provider Urology
DX: C61 Malignant neoplasm of prostate (principal); R97.20 Elevated prostate specific antigen [PSA]; Z80.42 Family history of malignant neoplasm of prostate
CPT/HCPCS: 71101; 73000

== ENCOUNTER → 2023-12-24 | Outpatient (CLI) | payer OTHER, SELFPAY ==
[2023-12-24 13:00] LABS: Anion Gap 5 (5-15); BUN 13 mg/dL (7-18); BUN/Creat Ratio 11.1 RATIO (10-20); Calcium,Total 9.6 mg/dL (8.5-10.1); Chloride 105 mmol/L (98-107); Creatinine, Serum 1.17 mg/dL (0.70-1.30); EST Glomerular Filtration Rate 65 mL/min (>60); Est Glom Filt Rate - Afr Amer 79 mL/min (>60); Glucose 102 mg/dL (74-106); Potassium 4.7 mmol/L (3.5-5.1); Sodium Level 138 mmol/L (136-145)
== END | disposition home or self-care (01) ==
LOC: BIMLAB 10:03
PROVIDERS: PCP Internal Medicine; Visit Provider Internal Medicine
DX: I10 Essential (primary) hypertension (principal)
CPT/HCPCS: 36415; 80048

== ENCOUNTER → 2024-02-05 | Outpatient (CLI) | payer OTHER, SELFPAY | END | disposition home or self-care (01) | LOC: LAB 16:22 | PROVIDERS: PCP Internal Medicine; Referring Provider Urology; Visit Provider Urology | DX: C61 Malignant neoplasm of prostate (principal) | CPT/HCPCS: 36415; 84153 ==

== ENCOUNTER → 2024-04-24 | Outpatient (CLI) | payer OTHER, SELFPAY ==
[2024-04-24 11:12] LABS: Hematocrit 40.2 % (40-54); Hemoglobin 12.5 g/dL (13.0-16.5); Mean Corp Hgb Conc 31.1 g/dL (32-36); Mean Corpuscular Hgb 26.8 pg (27.0-32.0); Mean Corpuscular Volume 86.1 fL (80-94); Mean Platelet Vol. 10.5 fl (6.2-12.0); Platelet Count 224 K/mm3 (150-450); RBC Distribution Width CV 14.1 % (11.6-14.6); RBC Distribution Width SD 44.1 fl (35.1-43.9); Red Blood Count 4.67 M/mm3 (4.6-6.2); White Blood Count 5.3 K/mm3 (4.4-11.0)
[2024-04-24 11:26] LABS: Ammonia < 10.0 umol/L (11-32)
[2024-04-24 11:28] LABS: ALB/GLOB Ratio 0.7 RATIO (0.9-2.4); AST(SGOT) 20 U/L (15-37); Alanine Aminotransfer ALT/SGPT 27 U/L (16-61); Albumin, Serum 3.5 g/dL (3.2-5.0); Alkaline Phosphatase 71 U/L (45-117); Anion Gap 1 (5-15); BUN 13 mg/dL (7-18); BUN/Creat Ratio 10.2 RATIO (10-20); Calcium,Total 9.5 mg/dL (8.5-10.1); Chloride 108 mmol/L (98-107); Creatinine, Serum 1.28 mg/dL (0.70-1.30); EST Glomerular Filtration Rate 59 mL/min (>60); Est Glom Filt Rate - Afr Amer 71 mL/min (>60); Globulin 4.9 g/dL (2.2-4.2); Glucose 91 mg/dL (74-106); Potassium 4.2 mmol/L (3.5-5.1); Protein, Total 8.4 g/dL (6.4-8.2); Sodium Level 140 mmol/L (136-145)
[2024-04-26 17:07] LABS: Lamotrigine (Lamictal) Level 4.7 ug/mL (2.0-20.0)
== END | disposition home or self-care (01) ==
LOC: LAB 10:46
PROVIDERS: PCP Internal Medicine; Referring Provider Psychiatry & Neurology Neurology; Visit Provider Psychiatry & Neurology Neurology
DX: G40.909 Epilepsy, unspecified, not intractable, without status epilepticus (principal)
CPT/HCPCS: 36415; 80053; 82140; 82542; 85027

== ENCOUNTER → 2024-06-15 | Outpatient (CLI) | payer OTHER, SELFPAY | END | disposition home or self-care (01) | LOC: LAB 09:17 | PROVIDERS: PCP Internal Medicine; Referring Provider Urology; Visit Provider Urology | DX: R97.20 Elevated prostate specific antigen [PSA] (principal) | CPT/HCPCS: 36415; 84153 ==

== ENCOUNTER → 2024-07-14 | Outpatient (CLI) | payer OTHER, SELFPAY ==
--- NOTE | 2024-07-14 10:03 | ECHOD_ITS ---
Reason For Study: ARRHYTHMIA Procedure This was a 2D Doppler, Color Flow transthoracic echocardiogram. Exam performed in department. Left Ventricle Normal LV size. Left ventricular systolic function is normal. The left ventricular ejection fraction is 65 %. Normal diastology for age. No regional wall motion abnormalities noted. Right Ventricle Normal RV size. Normal systolic function. Atria Normal left atrium. Normal right atrium. Mitral Valve Normal mitral valve. Tricuspid Valve Normal tricuspid valve. Aortic Valve Normal aortic valve. Pulmonic Valve Normal pulmonic valve. Great Vessels Normal aortic root. The pulmonary is not well visualized. Normal inferior vena cava. Pericardium/Pleural No pericardial effusion. MMode/2D Measurements & Calculations LVIDd: 4.2 cm IVSd: 1.1 cm LVOT diam: 2.0 cm LVIDs: 3.0 cm LVPWd: 1.1 cm LVOT area: 3.0 cm2 RVDd: 3.2 cm FS: 28.5 % Ao root diam: 3.3 cm LAV(MOD-bp): 63.8 ml LVAd ap4: 24.4 cm2 LAV(MOD-bp) Indexed: 31.8 ml/m2 LVLd ap4: 7.3 cm LAV(MOD-sp2): 61.7 ml EDV(MOD-sp4): 66.6 ml LAV(MOD-sp4): 61.3 ml EDV(sp4-el): 69.4 ml LVAs ap4: 13.5 cm2 LVLs ap4: 5.9 cm ESV(MOD-sp4): 28.3 ml ESV(sp4-el): 26.1 ml EF(MOD-sp4): 57.5 % EF(sp4-el): 62.4 % LVAd ap2: 26.6 cm2 SV(MOD-sp4): 38.3 ml SV(MOD-sp2): 54.1 ml LVLd ap2: 7.6 cm EDV(MOD-sp2): 78.5 ml EDV(sp2-el): 79.0 ml LVAs ap2: 12.4 cm2 LVLs ap2: 5.8 cm ESV(MOD-sp2): 24.4 ml ESV(sp2-el): 22.4 ml EF(MOD-sp2): 68.9 % SV(sp4-el): 43.3 ml LA dimension(2D): 3.7 cm LA A4 area: 19.2 cm2 RA A4 area: 17.2 cm2 TAPSE: 2.0 cm Time Measurements MV dec time: 0.16 sec Doppler Measurements & Calculations MV E max graham: 88.7 cm/sec Lat Peak E' Graham: 10.6 cm/sec Med Peak E' Graham: 9.4 cm/sec MV A max graham: 71.6 cm/sec E/E' lat: 8.4 E/E' med: 9.5 MV E/A: 1.2 MV V2 max: 91.2 cm/sec MV P1/2t max graham: 88.0 cm/sec Ao V2 max: 166.1 cm/sec MV max P.3 mmHg MV P1/2t: 42.3 msec Ao max P.0 mmHg MV V2 mean: 50.2 cm/sec Ao V2 mean: 108.8 cm/sec MV mean P.2 mmHg MV dec slope: 608.7 cm/sec2 Ao mean P.5 mmHg MV V2 VTI: 23.7 cm MVA(P1/2t): 5.2 cm2 Ao V2 VTI: 34.3 cm AV (velocity ratio): 0.80 MVA(VTI): 3.5 cm2 ALYSSA(I,D): 2.4 cm2 ALYSSA(V,D): 2.7 cm2 LV V1 max: 148.5 cm/sec SV(LVOT): 83.5 ml PA V2 max: 129.1 cm/sec LV V1 max P.8 mmHg PA V2 mean: 82.8 cm/sec LV V1 mean P.7 mmHg LV V1 mean: 90.4 cm/sec LV V1 VTI: 27.5 cm TR max graham: 285.7 cm/sec TR max P.6 mmHg ECHO/Echo Complete Interpretation Summary Normal LV size. Left ventricular systolic function is normal. The left ventricular ejection fraction is 65 %. Structurally normal valves. Ordering Physician: Hernan Joshi Referring Physician: Bev Echevarria Performed By: Lenka Diop, TITA, RVT
[2024-07-14 16:45] LABS: Absolute Lymphocyte Count 1.83 X10^3/uL (0.83-4.51); Absolute Neutrophil Count 2.5 X10^3/uL (2.0-7.7); Basophil# 0.03 X10^3/uL; Basophil% 0.6 % (0-1); Eosinophil# 0.05 X10^3/uL; Hematocrit 39.8 % (40-54); Hemoglobin 12.1 g/dL (13.0-16.5); Lymphocyte # 1.83 X10^3/ul (0.83-4.51); Lymphocyte % 37.4 % (19-41); Mean Corp Hgb Conc 30.4 g/dL (32-36); Mean Corpuscular Hgb 26.4 pg (27.0-32.0); Mean Corpuscular Volume 86.7 fL (80-94); Mean Platelet Vol. 10.9 fl (6.2-12.0); Monocyte# 0.43 X10^3/uL; Monocyte% 8.8 % (0-10); NRBC Flagged by Analyzer 0 % (0-5); Neutrophil # 2.54 X10^3/uL (2.7-7.7); Platelet Count 217 K/mm3 (150-450); RBC Distribution Width SD 44.4 fl (35.1-43.9); Red Blood Count 4.59 M/mm3 (4.6-6.2); White Blood Count 4.9 K/mm3 (4.4-11.0)
[2024-07-14 17:23] LABS: ALB/GLOB Ratio 0.8 RATIO (0.9-2.4); AST(SGOT) 21 U/L (15-37); Alanine Aminotransfer ALT/SGPT 31 U/L (16-61); Albumin, Serum 3.4 g/dL (3.2-5.0); Alkaline Phosphatase 60 U/L (45-117); Anion Gap 4 (5-15); BUN 19 mg/dL (7-18); BUN/Creat Ratio 15.4 RATIO (10-20); Calcium,Total 9.5 mg/dL (8.5-10.1); Chloride 105 mmol/L (98-107); Cholesterol 163 mg/dL (200); Creatinine, Serum 1.23 mg/dL (0.70-1.30); EST Glomerular Filtration Rate 62 mL/min (>60); Est Glom Filt Rate - Afr Amer 74 mL/min (>60); Globulin 4.5 g/dL (2.2-4.2); Glucose 87 mg/dL (74-106); High Density Lipoprotein 48 mg/dL; Potassium 4.3 mmol/L (3.5-5.1); Protein, Total 7.9 g/dL (6.4-8.2); Sodium Level 138 mmol/L (136-145); Triglycerides 162 mg/dL; Very Low Density Lipoprotein 32 mg/dL (5-40)
== END | disposition home or self-care (01) ==
PROVIDERS: PCP Internal Medicine; Referring Provider Internal Medicine Cardiovascular Disease; Visit Provider Internal Medicine Cardiovascular Disease
DX: Z00.00 Encounter for general adult medical examination without abnormal findings (principal); I45.6 Pre-excitation syndrome
CPT/HCPCS: 36415; 80053; 80061; 85025; 93225; 93226; 93306

== ENCOUNTER → 2024-12-16 | Outpatient (CLI) | payer MEDICARE, OTHER, SELFPAY | END | disposition home or self-care (01) | LOC: LAB 15:09 | PROVIDERS: PCP Internal Medicine; Referring Provider Nurse Practitioner; Visit Provider Nurse Practitioner | DX: C61 Malignant neoplasm of prostate (principal) | CPT/HCPCS: 36415; 84153 ==

== ENCOUNTER → 2025-01-13 | Outpatient (CLI) | payer MEDICARE, OTHER, SELFPAY ==
[2025-01-13 10:18] LABS: Hemoglobin 12.7 g/dL (13.0-16.5); Mean Corp Hgb Conc 31.8 g/dL (32-36); Mean Corpuscular Hgb 27.5 pg (27.0-32.0); Mean Corpuscular Volume 86.6 fL (80-94); Mean Platelet Vol. 10.8 fl (6.2-12.0); Platelet Count 191 K/mm3 (150-450); RBC Distribution Width CV 13.8 % (11.6-14.6); RBC Distribution Width SD 43.8 fl (35.1-43.9); Red Blood Count 4.62 M/mm3 (4.6-6.2); White Blood Count 4.7 K/mm3 (4.4-11.0)
[2025-01-13 10:21] LABS: Ammonia 10.1 umol/L (16-60)
[2025-01-13 10:49] LABS: ALB/GLOB Ratio 1.1 RATIO (0.9-2.4); AST(SGOT) 25 U/L (<=37); Alanine Aminotransfer ALT/SGPT 35 U/L (<=46); Albumin, Serum 4.1 g/dL (3.4-4.8); Alkaline Phosphatase 70 U/L (40-129); Anion Gap 8 (5-15); BUN 15 mg/dL (4-19); BUN/Creat Ratio 12.7 RATIO (10-20); Calcium,Total 8.8 mg/dL (7.6-11.0); Carbon Dioxide 28.2 mmol/L (21.0-32.0); Chloride 102 mmol/L (98-108); Creatinine, Serum 1.19 mg/dL (0.70-1.20); EST Glomerular Filtration Rate 65 (>60); Globulin 3.9 g/dL (2.2-4.2); Glucose 91 mg/dL (70-99); Sodium Level 139 mmol/L (133-145); Total Bilirubin 0.25 mg/dL (0.00-1.30)
[2025-01-17 17:08] LABS: Lamotrigine (Lamictal) Level 3.5 ug/mL (2.0-20.0)
== END | disposition home or self-care (01) ==
LOC: LAB 09:24
PROVIDERS: PCP Internal Medicine; Referring Provider Psychiatry & Neurology Neurology; Visit Provider Psychiatry & Neurology Neurology
DX: G40.909 Epilepsy, unspecified, not intractable, without status epilepticus (principal)
CPT/HCPCS: 36415; 80053; 82140; 82542; 85027

== ENCOUNTER → 2025-06-30 | Outpatient (CLI) | payer MEDICARE, SELFPAY ==
[2025-06-30 12:46] LABS: Hematocrit 42.7 % (40-54); Hemoglobin 13.4 g/dL (13.0-16.5); Immature Granulocytes Count 0.020 X10^3/uL (0.0-0.0); Mean Corp Hgb Conc 31.4 g/dL (32-36); Mean Corpuscular Volume 85.7 fL (80-94); Mean Platelet Vol. 10.9 fl (6.2-12.0); NRBC Flagged by Analyzer 0 % (0-5); Platelet Count 219 K/mm3 (150-450); RBC Distribution Width CV 13.8 % (11.6-14.6); RBC Distribution Width SD 43.3 fl (35.1-43.9); Red Blood Count 4.98 M/mm3 (4.6-6.2); White Blood Count 4.7 K/mm3 (4.4-11.0)
[2025-06-30 13:26] LABS: PSA,Total- Diagnostic 15.70 ng/mL (0.00-4.00)
[2025-06-30 13:34] LABS: AST(SGOT) 23 U/L (<=37); Alanine Aminotransfer ALT/SGPT 22 U/L (<=46); Albumin, Serum 4.1 g/dL (3.4-4.8); Alkaline Phosphatase 73 U/L (40-129); Anion Gap 9 (5-15); BUN 10 mg/dL (4-19); BUN/Creat Ratio 8.9 RATIO (10-20); Calcium,Total 9.6 mg/dL (7.6-11.0); Carbon Dioxide 27.6 mmol/L (21.0-32.0); Chloride 101 mmol/L (98-108); Globulin 4.0 g/dL (2.2-4.2); Glucose 88 mg/dL (70-99); Potassium 4.8 mmol/L (3.3-5.1); Vitamin B12 601 pg/mL (180-914)
== END | disposition home or self-care (01) ==
LOC: LAB 11:25
PROVIDERS: PCP Internal Medicine; Referring Provider Psychiatry & Neurology Neurology; Visit Provider Urology
DX: C61 Malignant neoplasm of prostate (principal); R41.3 Other amnesia
CPT/HCPCS: 36415; 80053; 82607; 84153; 84439; 84443; 85025

== ENCOUNTER → 2025-08-01 | Outpatient (CLI) | payer MEDICARE, SELFPAY ==
--- NOTE | 2025-08-01 13:00 | PROSBIL_PTH ---
PATIENT: SHERLEY MILLIGAN LOC: [facility] U#:[id number] AGE/SX: 74/M ROOM: RE08/01/[address]: Dr. Ousmane Edmonds MD : 1950 BED: DIS: 08/01/2025 SPEC #: [id number] RECD: 08/01/25 15:05 STATUS: CLIFF RECrispin #: [id number] MONICA: 08/01/25 13:[address]: Ousmane Edmonds DEPT: SURGICAL PATHOLOGY RECD BY: Jonathan Tidwell ENTERED: 08/02/25 10:20 SP TYPE: PROST BX MINNIE DR: Dr. Bev Echevarria MD Tissues: A - PROSTATE RIGHT B - PROSTATE RIGHT C - PROSTATE RIGHT D - PROSTATE LEFT E - PROSTATE LEFT F - PROSTATE LEFT Procedures: PROSTATE BX HEADER OPERATION: Prostate biopsy PRE-OP DIAGNOSIS: Elevated PSA TISSUE SUBMITTED: A - Right apex, B - Right mid, C - Right base, D - Left apex, E - Left mid, F - Left base MICROSCOPIC DIAGNOSIS A. 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 B. 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 C. 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 D. Prostate, left, apex, biopsy: - Focal adenocarcinoma [place] grade 3+3=6, involving two of three cores and < 5% of the specimen. E. Prostate, left, mid, biopsy: - Focal atypical small acinar proliferation. F. Prostate, left, base, biopsy: - Benign. MICROSCOPIC DESCRIPTION Slides are reviewed. GROSS DESCRIPTION Received in 6 formalin containers labeled with the patient's name and date of . Designated as: A. "RA" are 2 giordano tissue cores, 1.1 cm and 1.3 cm in length by 0.1 cm in diameter. Entirely submitted in 1 cassette. B. "RM" are 3 giordano tissue cores, 0.4 cm to 1.9 cm in length by 0.1 cm in diameter. Entirely submitted in 1 cassette. C. "RB" are 2 giordano tissue cores, 1.5 cm and 1.8 cm in length by 0.1 cm in diameter. Entirely submitted in 1 cassette. D. "LA" are 3 giordano tissue cores, 0.9 cm to 2.1 cm in length by 0.1 cm in diameter. Entirely submitted in 1 cassette. E. "LM" are 3 giordano tissue cores, 0.6 cm to 1.7 cm in length by 0.1 cm in diameter. Entirely submitted in 1 cassette. F. "LB" are 3 giordano tissue cores, 0.3 cm to 1.3 cm in length by 0.1 cm in diameter. Entirely submitted in 1 cassette. IN 08/02/2025 CPT:[id number]
== END | disposition home or self-care (01) ==
PROVIDERS: PCP Internal Medicine; Referring Provider Urology; Visit Provider Urology
DX: R97.20 Elevated prostate specific antigen [PSA] (principal)
CPT/HCPCS: 88305; G0416

== ENCOUNTER → 2025-08-23 | Outpatient (CLI) | payer MEDICARE, OTHER, SELFPAY ==
--- NOTE | 2025-08-23 09:00 | PET_ITS ---
PROCEDURE: PET/CT TUMOR BASE -THIGH INIT 08/23/2025 REASON FOR EXAM: 74 y/o M with PYLARIFY TECHNIQUE: Procedure Code: [id number] Modality: PT Procedure: PET/CT TUMOR BASE -THIGH INIT After intravenous injection of 9.9 millicuries of PSMA Pylarify and a standard uptake period, a noncontrast CT scan, followed by a PET scan were acquired along the length of the body from the top of the skull to the mid thighs. The noncontrast helical CT imaging was performed without breath hold, for attenuation correction of PET images and anatomic correlation, but not for primary interpretation, as it is not of the standard diagnostic quality. Images were reviewed in the axial, coronal and sagittal planes. RADIATION DOSE SUMMARY: CTDI: 10.17 mGy. DLP: 1051.15 mGy cm COMPARISON: COMPARISON FROM CT, PET OR OTHER PERTINENT EXAMS: Whole-body bone scan, 09/16/2023.. FINDINGS: Examination of the 3D tomographic PET images demonstrates expected uptake in the lacrimal glands, salivary glands, liver, spleen, kidneys, bowel and bladder. There is calcific vascular disease of the intracranial portion of both internal carotid arteries. The intracranial contents appear otherwise unremarkable. There is no abnormal activity in the pulmonary parenchyma. There are no pleural effusions. The heart size is normal. There is no pericardial effusion. There is no significant calcific vascular disease of the coronary arteries or thoracic aorta evident. There are benign calcified subcarinal and right hilar lymph nodes. There is bilateral gynecomastia. There is minimal calcific vascular disease of the abdominal aorta. The prostate gland measures 5.7 cm in transverse dimension. There is an umbilical hernia containing normal fat measuring 12 mm in diameter. Prostate bed: At the apex level, there are 2 foci of increased activity in the left side of the prostate gland: -Anteriorly, transitional zone, measuring 1.1 x 1.1 cm, max SUV 8.9. -posterior, central/transitional zone, measuring 1.5 x 1.2 cm, max SUV 6.7. At the base level, there is a focus of increased activity posteriorly in the prostate gland: -peripheral zone, measuring 7 x 7 mm, max SUV 4.4. Just inferior to this area of activity, there is an area of intense activity, felt to be within the urethra, 1.1 x 1.1 cm, max SUV 15.0. Lymph nodes: There is no abnormal lymph node activity. There is a focus of activity in the mid abdomen, on the left, just anterior to the psoas muscle, felt to be within the ureter. Skeleton: There is no abnormal skeletal activity. Uptake time: 60 minutes. Mediastinal blood pool: Max SUV, 2.1 BMI: 24.8 PET/PET/CT Tumor Base -Thigh Init IMPRESSION: 1. Foci of increased activity in the prostate gland consistent with prostate c arcinoma. 2. There are no foci of activity, consistent with neoplastic disease, outside of the prostate gland. 3. Other findings as noted. E- PSMA score: 4 E- PSMA scoring: Score = 1: Benign lesion without abnormal PSMA uptake. Score = 2: Probably benign lesion: Faint PSMA uptake (equal to or lower than ba ckground) in the site atypical for prostate cancer. Score = 3: Equivocal finding: Faint uptake in a site typical for prostate cance r or intense uptake in a site atypical prostate cancer. Score = 4: Probably prostate cancer: Intense uptake and a site typical for pros gutierrez cancer, but without definitive findings on CT. Score = 5: Definitive evidence of prostate cancer: Intense uptake in a typical site of prostate cancer with definitive findings on CT. Reading Location: [id number]
== END | disposition home or self-care (01) ==
PROVIDERS: PCP Internal Medicine; Referring Provider Urology; Visit Provider Urology
DX: C61 Malignant neoplasm of prostate (principal)
CPT/HCPCS: 78815; A9595